=== PATIENT | female | born 1970 | race Caucasian/White ===

== ENCOUNTER → 2017-10-21 14:15 | Outpatient (CLI) | payer MEDICAID, SELFPAY ==
--- NOTE | 2017-10-21 14:16 | US_ITS ---
STUDY: ULTRASOUND OF THE FEMALE PELVIS REASON FOR EXAM: Female, 47 years old. Pelvic pain LMP: Post hysterectomy TECHNIQUE: Transverse and longitudinal imaging of the pelvis was obtained transabdominally and transvaginally using real-time ultrasound. COMPARISON: None. FINDINGS: The uterus is surgically absent. The right ovary is surgically absent. The left ovary is surgically absent. There is no fluid in the cul-de-sac. The bladder volume measures 739 mL. There is an echogenic focus along the posterior wall of the bladder measuring 8 mm in size. US/Pelvic (Non ) IMPRESSION: The uterus and ovaries are surgically absent. There are no abnormal masses in the pelvis. There is no free fluid in the pelvis. There is a small echogenic focus along the posterior wall of the bladder measuring 8 mm, probable stone in the bladder lumen or in the left UVJ. Electronically Signed: Radha Bardales MD at 20:14 EST Tel Direct: [phone], Service support ,
--- NOTE | 2017-10-21 14:16 | US_ITS ---
STUDY: ULTRASOUND OF THE FEMALE PELVIS REASON FOR EXAM: Female, 47 years old. Pelvic pain LMP: Post hysterectomy TECHNIQUE: Transverse and longitudinal imaging of the pelvis was obtained transabdominally and transvaginally using real-time ultrasound. COMPARISON: None. FINDINGS: The uterus is surgically absent. The right ovary is surgically absent. The left ovary is surgically absent. There is no fluid in the cul-de-sac. The bladder volume measures 739 mL. There is an echogenic focus along the posterior wall of the bladder measuring 8 mm in size. US/Transvaginal Non- IMPRESSION: The uterus and ovaries are surgically absent. There are no abnormal masses in the pelvis. There is no free fluid in the pelvis. There is a small echogenic focus along the posterior wall of the bladder measuring 8 mm, probable stone in the bladder lumen or in the left UVJ. Electronically Signed: Radha Bardales MD at 20:14 EST Tel Direct: [phone], Service support ,
== END ==
PROVIDERS: Family Provider Family Medicine; PCP Family Medicine; Visit Provider Nurse Practitioner Women's Health
DX: R10.2 Pelvic and perineal pain (principal); Z90.710 Acquired absence of both cervix and uterus
CPT/HCPCS: 76830; 76856

== ENCOUNTER → 2017-10-23 11:49 | Outpatient (CLI) | payer MEDICAID, SELFPAY ==
[2017-10-23 11:52] LABS: Bacteria 0 SEEN /hpf (None Seen); Mucous, Urine 0 SEEN /hpf (<or=2+); Red Blood Cells-Urine 0 SEEN /hpf (0-5); White Blood Cells 0 SEEN /hpf (0-5)
[2017-10-23 15:46] LABS: Absolute Lymphocyte Count 4.31 X10^3/ul (0.83-4.51); Absolute Neutrophil Count 4.8 X10^3/uL (2.0-7.7); Basophil# 0.04 X10^3/uL; Basophil% 0.4 % (0-1); Eosinophil# 0.12 X10^3/uL; Eosinophils% 1.2 % (0-5); Hematocrit 42.8 % (37-47); Hemoglobin 13.6 g/dl (12.0-15.0); Lymphocyte # 4.31 X10^3/ul (4.0); Lymphocyte % 43.3 % (19-41); Mean Corp Hgb Conc 31.8 g/gl (32-36); Mean Corpuscular Hgb 30.8 pg (27.0-32.0); Mean Corpuscular Volume 96.8 fL (81-99); Mean Platelet Vol. 10.7 fl (6.2-12.0); Monocyte# 0.71 X10^3/uL; Monocyte% 7.1 % (0-10); Neutrophil # 4.75 X10^3/uL (2.7-7.7); Neutrophil % 47.8 % (47-70); Platelet Count 286 K/mm3 (150-450); RBC Distribution Width CV 15.3 % (11.6-14.6); RBC Distribution Width SD 53.2 fl (35.1-43.9); Red Blood Count 4.42 M/mm3 (4.2-5.4)
[2017-10-23 15:47] LABS: POSITIVE COUNT NO; POSITIVE DIFFERENTIAL NO; POSITIVE MORPHOLOGY NO
[2017-10-23 16:21] LABS: Vitamin B12 955 pg/mL (211-911); Vitamin D,25 Hydroxy 10.8 ng/mL (19.95-100.01)
[2017-10-23 16:35] LABS: ALB/GLOB Ratio 1.1 RATIO (0.9-2.4); AST(SGOT) 17 U/L (15-37); Alanine Aminotransfer ALT/SGPT 32 U/L (13-56); Albumin, Serum 3.9 g/dL (3.2-5.0); Alkaline Phosphatase 95 U/L (45-117); Anion Gap 7 (5-15); BUN 15 mg/dL (7-18); BUN/Creat Ratio 21.4 RATIO (10-20); Calcium,Total 9.2 mg/dL (8.5-10.1); Chloride 104 mmol/L (98-107); EST Glomerular Filtration Rate 96 mL/min (>60); Est Glom Filt Rate - Afr Amer 116 mL/min (>60); Globulin 3.7 g/dL (2.2-4.2); Glucose 83 mg/dL (74-106); Potassium 3.8 mmol/L (3.5-5.1); Protein, Total 7.6 g/dL (6.4-8.2); Sodium Level 139 mmol/L (136-145); Thyroid Stim Hormone (TSH) 1.18 uIU/mL (0.358-3.74)
[2017-10-23 18:39] LABS: Color, Urine Yellow (Yellow); Glucose, Dipstick Normal (Normal); Ketone-Dipstick Negative (Negative); Leukocyte Esterase-Dipstick Negative /ul (Negative); Nitrite-Dipstick Negative (Negative); Occult Blood-Urine Negative /ul (Negative); Protein-Dipstick Negative (Negative); Urine Bilirubin Dipstick Negative (Negative); Urine Clarity Clear (Clear); Urine Urobilinogen Normal (Normal)
[2017-10-23 18:48] LABS: Squamous Epithelial Cells - UA 0-5 SEEN /hpf (5-10)
== END ==
PROVIDERS: Family Provider Family Medicine; PCP Family Medicine; Visit Provider Family Medicine
DX: R53.83 Other fatigue (principal); R31.29 Other microscopic hematuria
CPT/HCPCS: 36415; 80053; 81001; 82306; 82607; 84443; 85025; 87086; 87088

== ENCOUNTER → 2018-02-18 15:22 | Outpatient (CLI) | payer MEDICAID, SELFPAY ==
[2018-02-18 18:16] LABS: ALB/GLOB Ratio 1.1 RATIO (0.9-2.4); AST(SGOT) 15 U/L (15-37); Alanine Aminotransfer ALT/SGPT 32 U/L (13-56); Albumin, Serum 3.7 g/dL (3.2-5.0); Alkaline Phosphatase 105 U/L (45-117); Anion Gap 10 (5-15); BUN 11 mg/dL (7-18); Calcium,Total 8.6 mg/dL (8.5-10.1); Chloride 106 mmol/L (98-107); Creatinine, Serum 0.78 mg/dL (0.55-1.02); EST Glomerular Filtration Rate 84 mL/min (>60); Est Glom Filt Rate - Afr Amer 101 mL/min (>60); Globulin 3.4 g/dL (2.2-4.2); Glucose 83 mg/dL (74-106); Potassium 3.7 mmol/L (3.5-5.1); Protein, Total 7.1 g/dL (6.4-8.2); Sodium Level 144 mmol/L (136-145); Thyroid Stim Hormone (TSH) 0.99 uIU/mL (0.358-3.74)
[2018-02-19 08:41] LABS: Vitamin D,25 Hydroxy 35.3 ng/mL (29.95-100.01)
== END ==
PROVIDERS: Family Provider Family Medicine; PCP Family Medicine; Visit Provider Family Medicine
DX: I42.9 Cardiomyopathy, unspecified (principal); I10 Essential (primary) hypertension; E55.9 Vitamin D deficiency, unspecified; Z51.81 Encounter for therapeutic drug level monitoring
CPT/HCPCS: 36415; 80053; 82306; 84443

== ENCOUNTER → 2018-11-18 12:05 | Outpatient (CLI) | payer MEDICAID, SELFPAY ==
[2017-10-22 09:58] VITALS: BMI 34.7
--- NOTE | 2018-11-18 12:12 | RAD_ITS ---
We are attempting to reach Catarino Flood DO to discuss findings. An addendum with communication details will be sent when the communication is complete. STUDY: X-RAY - CERVICAL SPINE REASON FOR EXAM: Female, 48 years old. Left shoulder pain radiating into left side of neck. No known injury. TECHNIQUE: 5 view(s) of the cervical spine were obtained. COMPARISON: None FINDINGS: There are degenerative changes of the anterior atlantoaxial articulation. Normal odontoid process. There is straightening of the normal cervical lordosis. There is multi-level endplate spondylosis. There is multi-level degenerative disc disease with multilevel disc space narrowing. There are degenerative arthroses of the mid cervical facet articulations. There is moderate osseous narrowing of the bilateral C3-4 intervertebral neural foramina, and mild osseous narrowing at C6-7. There are atherosclerotic vascular calcifications of the carotid arteries. There is no demonstrated osseous destructive process or acute fracture of the cervical spine. RAD/Cerv Spine 4 or 5 Views IMPRESSION: 1. Multilevel degenerative changes of the right cervical spine as described. 2. Atherosclerotic calcific plaquing of the bilateral carotid arteries incidentally noted, greater on the right. Pending Final Proof Editing
== END ==
PROVIDERS: Family Provider Family Medicine; PCP Family Medicine; Referring Provider Family Medicine; Visit Provider Family Medicine
DX: M54.12 Radiculopathy, cervical region (principal)
CPT/HCPCS: 72050

== ENCOUNTER → 2018-11-20 08:33 | Outpatient (CLI) | payer MEDICAID, SELFPAY ==
[2017-10-22 09:58] VITALS: BMI 34.7
[2018-11-20 12:47] LABS: Cholesterol 281 mg/dL (200); High Density Lipoprotein 37 mg/dL; Triglycerides 191 mg/dL; Very Low Density Lipoprotein 38 mg/dL (5-40)
== END ==
PROVIDERS: Family Provider Family Medicine; PCP Family Medicine; Visit Provider Family Medicine
DX: I65.29 Occlusion and stenosis of unspecified carotid artery (principal); E78.5 Hyperlipidemia, unspecified
CPT/HCPCS: 36415; 80061

== ENCOUNTER → 2018-11-21 10:01 | Outpatient (CLI) | payer MEDICAID, SELFPAY ==
[2017-10-22 09:58] VITALS: BMI 34.7
--- NOTE | 2018-11-21 10:04 | CDU_ITS ---
Reason For Study: Carotid atherosclerosis Rt. Velocities/BP Lt. Velocities/BP Prox CCA 66.3/16.4 cm/sec. Prox CCA 85.6/24.6 cm/sec. Mid CCA 64.5/19.9 cm/sec. Mid CCA 66.8/20.5 cm/sec. Dist CCA 68.0/19.9 cm/sec. Dist CCA 63.3/22.3 cm/sec. Prox ICA 83.3/22.3 cm/sec. Prox ICA 69.2/28.7 cm/sec. Mid ICA 67.4/21.7 cm/sec. Mid ICA 80.6/31.3 cm/sec. Dist ICA 89.1/39.9 cm/sec. Dist ICA 82.0/34.5 cm/sec. Rt. ICA/CCA = 1.4. Lt. ICA/CCA = 1.2. Prox ECA 87.1/21.4 cm/sec. Prox ECA 91.5/22.3 cm/sec. Rt. Vert. 44.0/14.1 cm/sec. Lt. Vert. 56.9/17.6 cm/sec. Right Extracranial There is homogeneous, smooth atherosclerotic plaque noted in the right common carotid artery. There is heterogeneous, irregular atherosclerotic plaque noted in the right internal carotid artery. There is no significant atherosclerotic plaque noted in the right external carotid artery. Antegrade flow is noted in the right vertebral artery. Left Extracranial There is intimal thickening but no significant atherosclerotic plaque noted in the left common carotid artery. There is heterogeneous, irregular atherosclerotic plaque noted in the left internal carotid artery. There is intimal thickening but no significant atherosclerotic plaque noted in the left external carotid artery. Antegrade flow is noted in the left vertebral artery. Procedure Carotid Duplex 29039. Exam performed in department. Interpretation Summary Mild (<50%) stenosis right extracranial internal carotid. Mild (<50%) stenosis left extracranial internal carotid. Flow within the vertebral arteries is antegrade bilaterally. Ordering Physician: Catarino Flood Referring Physician: Catarino Flood Performed By: Myesha Velasquez RVT
== END ==
PROVIDERS: Family Provider Family Medicine; PCP Family Medicine; Referring Provider Family Medicine; Visit Provider Family Medicine
DX: I65.23 Occlusion and stenosis of bilateral carotid arteries (principal)
CPT/HCPCS: 93880

== ENCOUNTER 2018-11-24 10:16 | Emergency (ER) | payer MEDICAID, SELFPAY ==
[2018-11-24 10:20] VITALS: BP 166/115; PULSE 97; RESP 16; TEMP 36.5; O2SAT 99; BMI 32.5
--- NOTE | 2018-11-24 10:36 | NURSING ---
NO OLD EKGS
--- NOTE | 2018-11-24 11:10 | ED.VIS.GEN ---
History of Present Illness Chief Complaint: Chest Pain Informant: Patient Onset: Today Context: Sudden Onset Timing: Intermittent Quality: Sharp chest pain Location: Left side Current Severity: Mild Maximum Severity: Moderate Worsened by: Nothing according the patient Relieved by: Nothing Associated Symptoms: Subjective fever with sweats Narrative: Patient is a middle-aged woman who is a smoker presents with left-sided chest pain that she localized over the fourth fifth intercostal space. Recent diagnosis of bronchitis/sinusitis. She has had symptoms for approximately 3 weeks. She denies leg pain, swelling discoloration. She has no risk factors for PE or DVT. She is on no hormonal therapy. She does complain of nasal congestion. She reports cough. She denies hematemesis, melena medication. She does have history of reflux. She has no history of hypertension. Patient states she is on a beta-mert for her heart muscle and is on an anticholesterol medication. She states her blood pressure was higher than normal at 152 systolic. Past Medical History - Allergies and Home Meds Allergies/Adverse Reactions: Allergies No Known Allergies Allergy (Unverified 09/30/17 15:08) Primary Care Physician: Catarino Flood DO [Primary Care Provider] - Prior records reviewed: Yes Past Medical History: - Smoking Status: Current every day smoker Alcohol: Rare Drugs: None Review of Systems General: Denies: Chills, Fever, Sweats Eyes: Denies: Visual changes - bilaterally, Blurred vision - left, Diplopia ENT: Denies: Bilateral ear pain, Rhinorrhea, Sore throat Cardiovascular: Reports: Chest pain. Denies: Palpitations Respiratory: Denies: Dyspnea, Cough, Dyspnea on exertion Gastrointestinal: Denies: Abdominal pain, Nausea, Vomiting, Diarrhea, Melena, Hematochezia Genitourinary: Denies: Dysuria, Hematuria, Frequency Musculoskeletal: Denies: Back pain, Extremity Pain Skin: Denies: Rash, Wounds Neurological: Denies: Headache, Weakness, Numbness Hematologic: Denies: Easy bruising, Easy bleeding Allergy: Denies: Uticaria, Swelling of the mouth, Swelling of the tongue Physical Exam Vital Signs/Narrative: Vital Signs Temp Pulse Resp BP Pulse Ox 11/24/18 10:20 97.7 F L 97 16 166/115 H 99 General: Well nourished, Well developed, No Acute Distress Head: Normocephalic, Atraumatic Eyes: Perrl, EOMI ENT: Moist mucous membranes, No rhinorrhea Neck: Supple, Nontender, No lymphadenopathy, No JVD Cardiovascular: Regular rate, Regular rhythm, No murmurs Respiratory: No distress, CTA bilaterally, Chest tenderness - Fourth fifth left intercostal space Abdomen: Soft, Nontender, Nondistended, Normal bowel sounds Back: Nontender, Normal Inspection Extremities: Nontender, No edema, - - There is no asymmetry, swelling, discoloration, leg vein distention, palpable cords or tenderness along the distribution of the deep venous system. Skin: Normal color, No rash Neurological: Alert, Oriented x3, Cranial nerves II-XII grossly intact, Normal Strength, Normal Sensation Psychological: Normal affect, Normal Mood Diagnostic/Tx/Re-eval - Medical Decision Making Patient's history and physical consistent with costochondritis. Laboratory testing, EKG and radiologic imaging is not indicated. Patient is PERC negative. ED Disposition - Plan for ED Patient: Disposition: Home or Assisted Living Diagnosis: Costochondritis, acute Instructions: ED Chest Pain Costochondritis Prescriptions: Naproxen [Naprosyn] 500 mg PO BID #14 tablet Referrals: Catarino Flood DO [Primary Care Provider] - 1 Week if not improving Additional Instructions: Your prescription was electronically transmitted to your designated pharmacy.
[2018-11-24 11:36] VITALS: BP 136/88; PULSE 80; RESP 14; O2SAT 95
[2018-11-24] MEDS: Naproxen 250 MG Tablet 500 MG PO (11:37)
--- NOTE | 2018-11-24 12:00 | EKG12_ITS ---
Test Reason : CP Blood Pressure : / mmHG Vent. Rate : 081 BPM Atrial Rate : 081 BPM P-R Int : 156 ms QRS Dur : 088 ms QT Int : 406 ms P-R-T Axes : 055 047 055 degrees QTc Int : 471 ms Normal sinus rhythm Nonspecific ST and T wave abnormality Abnormal ECG Confirmed by TRAVIS MULTANI, SANTOS ([id number]), department editor EREN CARRIZALES ([id number]) on 11/25/2018 2:18:14 PM Referred By: YEHUDA Confirmed By:SANTOS ROBLES MD
== END 2018-11-24 11:41 | disposition home or self-care (01) ==
PROVIDERS: Emergency Provider Emergency Medicine; Family Provider Family Medicine; PCP Family Medicine
DX: M94.0 Chondrocostal junction syndrome [Tietze] (principal); K21.9 Gastro-esophageal reflux disease without esophagitis; F17.200 Nicotine dependence, unspecified, uncomplicated
CPT/HCPCS: 93005; 99284; A4216

== ENCOUNTER → 2019-03-18 06:48 | Outpatient (CLI) | payer MEDICAID, SELFPAY ==
--- NOTE | 2019-03-18 10:21 | NEURO ---
NCS and/or EMG Patient Report Ordering Doctor: Catarino Flood DATE OF SERVICE: 03/18/19 This is a left upper extremity EMG and nerve conduction study performed on this 48-year-old female with [id number] in her left arm and hand affecting all fingers equally. The symptoms do awaken her from sleep at night and have been constant for approximately 1 month. She says based on plain x-rays of her neck she has been diagnosed with arthritis and possible disc herniation. She has not had other neuro imaging. Left upper extremity sensory and motor nerve conduction studies performed demonstrating prolongation of the median motor and sensory distal latency with preservation of amplitude and conduction velocity. The ulnar motor and sensory and radial sensory responses are normal. There is mild prolongation of the left median F wave compared to the ulnar F-wave. Left upper extremity needle electromyography is performed. Muscles evaluate included the first interosseous, abductor pollicis brevis, brachioradialis, biceps, triceps and deltoid muscles. There is slight increase in insertional activity in the abductor pollicis brevis muscle. All other muscles tested demonstrated normal insertional activity with absence of pathologic spontaneous activity and motor unit potential recruitment pattern and amplitude was otherwise normal. 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
== END ==
PROVIDERS: Family Provider Family Medicine; PCP Family Medicine; Referring Provider Family Medicine; Visit Provider Family Medicine
DX: G56.02 Carpal tunnel syndrome, left upper limb (principal)
CPT/HCPCS: 95886; 95910

== ENCOUNTER → 2019-04-16 08:23 | Outpatient (CLI) | payer MEDICAID, SELFPAY ==
[2019-04-16 08:17] VITALS: BMI 32.5
--- NOTE | 2019-04-16 08:24 | RAD_ITS ---
STUDY: X-RAY - LEFT HAND REASON FOR EXAM: Hand and wrist pain from repetitive movement. TECHNIQUE: 3 view(s) of the hand. COMPARISON: None. FINDINGS: Normal radiocarpal articulation. Normal distal radioulnar joint. Normal visualized carpal bones. Normal carpal articulations Normal carpometacarpal articulation of the thumb. Normal second through fifth carpometacarpal joints. Normal metacarpi. Normal metacarpophalangeal joint of the thumb. Normal interphalangeal joint of the thumb. Normal proximal and distal phalanges of the thumb. Normal metacarpophalangeal joints of the second through fifth fingers. Normal proximal and distal interphalangeal joints of the second through fifth fingers. Normal phalanges of the second through fifth fingers. The soft tissue structures are unremarkable. RAD/Hand Min 3 Views IMPRESSION: Normal x-ray examination of the left hand. Electronically Signed: Myles Bishop MD at 10:20 EDT Tel , Service support ,
== END ==
PROVIDERS: Family Provider Family Medicine; PCP Family Medicine; Referring Provider Orthopaedic Surgery; Visit Provider Orthopaedic Surgery
DX: G56.12 Other lesions of median nerve, left upper limb (principal)
CPT/HCPCS: 73130

== ENCOUNTER → 2019-10-07 16:09 | Outpatient (CLI) | payer MEDICAID, SELFPAY ==
[2019-10-07 14:34] VITALS: BMI 32.5
== END ==
LOC: LABSPEC 16:10
PROVIDERS: PCP Family Medicine; Referring Provider Nurse Practitioner Women's Health; Visit Provider Nurse Practitioner Women's Health
DX: N89.8 Other specified noninflammatory disorders of vagina (principal)
CPT/HCPCS: 87070; 87106; 87205

== ENCOUNTER → 2020-05-17 07:14 | Outpatient (CLI) | payer MEDICAID, SELFPAY ==
[2020-05-02 13:03] VITALS: BMI 32.8
[2020-05-10 11:01] VITALS: BMI 33.1
--- NOTE | 2020-05-17 07:15 | ECHOD_ITS ---
Reason For Study: CHEST PAIN Procedure This was a 2D Doppler, Color Flow transthoracic echocardiogram. Exam performed in department. Left Ventricle Normal LV size. Left ventricular systolic function is normal. The estimated ejection fraction is 65 %. Diastolic function is indeterminate. No regional wall motion abnormalities noted. Right Ventricle Normal RV size. Normal systolic function. Atria Normal left atrium. Normal right atrium. No doppler evidence for ASD. Mitral Valve There is no mitral annular calcification. Mild diffuse mitral valve thickening. Trivial mitral valve insufficiency. Tricuspid Valve Normal tricuspid valve. Trivial tricuspid valve insufficiency. Right ventricular systolic pressure estimated to be 34 mmHg. Aortic Valve Trisinus/trileaflet aortic valve. Normal aortic valve. Pulmonic Valve Normal pulmonic valve. Trivial pulmonic valve insufficiency. Great Vessels Normal aortic root. Pericardium/Pleural No pericardial effusion. MMode/2D Measurements & Calculations LVIDd: 4.7 cm IVSd: 0.85 cm Ao root diam: 3.2 cm LVIDs: 2.5 cm LVPWd: 0.85 cm RVDd: 3.4 cm FS: 46.3 % LAV(MOD-bp): 32.2 ml LA A4 area: 11.9 cm2 LA dimension(2D): 3.0 cm LAV(MOD-bp) Indexed: 17.1 ml/m2 LAV(MOD-sp2): 35.6 ml LAV(MOD-sp4): 27.7 ml RA A4 area: 9.8 cm2 Time Measurements MV dec time: 0.27 sec Doppler Measurements & Calculations MV E max alden: 75.4 cm/sec Lat Peak E' Alden: 5.2 cm/sec Med Peak E' Alden: 6.6 cm/sec MV A max alden: 79.3 cm/sec E/E' lat: 14.4 E/E' med: 11.5 MV E/A: 0.95 Ao V2 max: 142.2 cm/sec LV V1 max: 101.9 cm/sec PA V2 max: 91.8 cm/sec Ao max P.1 mmHg LV V1 max P.2 mmHg TR max alden: 277.2 cm/sec TR max P.7 mmHg Interpretation Summary Left ventricular systolic function is normal. The estimated ejection fraction is 65 %. Mild diffuse mitral valve thickening. Trivial mitral valve insufficiency. Trivial tricuspid valve insufficiency. Trivial pulmonic valve insufficiency. Right ventricular systolic pressure estimated to be 34 mmHg. Diastolic function is indeterminate. Ordering Physician: Nicolas Ybarra Referring Physician: BETH BARRIOS Performed By: Shanti Saunders, RDCS, RVT
--- NOTE | 2020-05-17 07:30 | RAD_ITS ---
STUDY: X-RAY CHEST REASON FOR EXAM: Female, 49 years old. BRITO, some CP TECHNIQUE: PA and lateral views of the chest. COMPARISON: None. FINDINGS: Hyperinflation. Scattered calcified granulomas. There is no demonstrated pleural abnormality. Normal size heart. Normal mediastinum and alyssa. Normal visualized pulmonary arteries. Normal visualized aortic arch and descending thoracic aorta. There is demineralization of the osseous structures. Normal visualized ribs, clavicles, and shoulders. Surgical clips are seen in the right upper quadrant most likely secondary to prior cholecystectomy. RAD/Chest PA and Lateral IMPRESSION: Hyperinflation. No acute abnormality is seen. Electronically Signed: Johnathon Gil, at 8:13 EDT , Service support ,
--- NOTE | 2020-05-17 10:08 | STRESSREP ---
Stress Test Report Date: 05-17-2020 Procedure: Exercise tolerance test/imaging study Indications: Pain; dyspnea on exertion; palpitations Consent: Per the patient Procedure: The patient exercised on a Dean protocol for 7 minutes completing Stage II and 1 minute of Stage III achieving a peak heart rate of 131 bpm (76 % predicted maximal heart rate) with a peak blood pressure 152/78 mmHg and a peak MET capacity of 8 METs. The baseline ECG demonstrated sinus bradycardia. The peak exercise ECG demonstrated somatic/motion artifact with no obvious ECG changes. There were no cardiac dysrhythmias pretest, during exercise, or recovery. The functional capacity was considered average. There was no complaint of chest discomfort during exercise or recovery. The examination was discontinued secondary to dyspnea. Impression: 1. Technically adequate (percent predicted maximal heart rate greater than 85%) exercise tolerance test 2. Peak exercise ECG with somatic/motion artifact with no obvious ECG changes 3. There were no cardiac dysrhythmias pretest, during exercise, or recovery 4. Nuclear images pending Myocardial perfusion imaging study: Technique: The patient was injected with 11.1 mCi of technetium 99m Cardiolite and subsequently rest SPECT Cardiolite nuclear imaging was obtained in the horizontal long, vertical long, and short axis views. The patient exercised on a Dean protocol for 7 minutes completing Stage II and 1 minute of Stage III achieving a peak heart rate of 131 bpm (76 % predicted maximal heart rate) with a peak blood pressure 152/78 mmHg and a peak MET capacity of 8 METs. The patient was injected with 33.4 mCi of technetium 99m Cardiolite and subsequently stress SPECT Cardiolite nuclear imaging was obtained in the horizontal long, vertical long, and short axis views. A gated Cardiolite study at peak stress was obtained. Interpretation: Rest and stress SPECT Cardiolite nuclear imaging status post realignment, normalization, and attenuation correction, demonstrates the appearance of relative uniform tracer uptake and myocardial perfusion appearing within normal limits. There is end systolic thickening and brightening. The gated Cardiolite study demonstrates myocardial thickening and inward wall motion. The reported LVEF is 74 %. Impression: 1. Rest and stress SPECT Cardiolite nuclear imaging demonstrate relative uniform tracer uptake and myocardial perfusion appearing within normal limits. 2. The gated Cardiolite study reports an LVEF of 74 %. This note was generated with [employer] software. It may contain incorrect words, spelling, and punctuation that were not noted in checking the note before signing.
== END ==
PROVIDERS: PCP Family Medicine; Referring Provider Internal Medicine Cardiovascular Disease; Visit Provider Internal Medicine Cardiovascular Disease
DX: R07.9 Chest pain, unspecified (principal); R06.00 Dyspnea, unspecified; R09.02 Hypoxemia; I49.3 Ventricular premature depolarization; I47.9 Paroxysmal tachycardia, unspecified; I34.1 Nonrheumatic mitral (valve) prolapse; E78.2 Mixed hyperlipidemia; I10 Essential (primary) hypertension; I65.23 Occlusion and stenosis of bilateral carotid arteries
CPT/HCPCS: 71046; 78452; 93017; 93306; A9500; A4216

== ENCOUNTER → 2020-06-09 12:20 | Outpatient (CLI) | payer MEDICAID, SELFPAY ==
[2020-05-10 11:01] VITALS: BMI 33.1
--- NOTE | 2020-06-09 15:59 | PFTCOMP ---
COMPLETE PULMONARY FUNCTION TEST INTERPRETATION Brief HPI: Patient is a 49 year old female, currently under the care of Dr. Kyle, who presents to [facility] for complete pulmonary function tests secondary to diagnosis of dyspnea. Respiratory therapist reports good effort and reproducible results. Interpretation: Forced expiration spirometry shows no large airways obstructive ventilatory defect with an FEV1 of 84% predicted. There is no significant bronchodilator response by strict ATS criteria. Spirograms are of good quality and plateau normally. The respiratory flow volume loop shows a normal pattern. Lung volumes by body plethysmography show an elevated total lung capacity at 6.65 L, 139% predicted. FRC and RV are elevated out of proportion. Lung volume measurements are consistent with hyperinflation and air-trapping. Diffusion capacity by carbon monoxide is decreased at 58% predicted. The airway resistance is elevated. No previous pulmonary function tests were available for review. Impression: Air trapping with hyperinflation and a significant reduction in diffusion capacity. Spirometry is within normal limits.
== END ==
PROVIDERS: PCP Family Medicine; Referring Provider Internal Medicine Critical Care Medicine; Visit Provider Internal Medicine Critical Care Medicine
DX: R06.02 Shortness of breath (principal)
CPT/HCPCS: 94060; 94726; 94729

== ENCOUNTER → 2020-06-13 12:29 | Outpatient (CLI) | payer MEDICAID, SELFPAY ==
[2020-05-10 11:01] VITALS: BMI 33.1
[2020-06-13 12:52] VITALS: PULSE 63; PULSE 64; PULSE 93; PULSE 95; PULSE 96; PULSE 98; O2SAT 96; O2SAT 97; O2SAT 98
--- NOTE | 2020-06-13 12:55 | CPS ---
wears 2 LPM at night per her exercise specialist.
--- NOTE | 2020-06-14 10:41 | PCM.PSN.6M ---
PSN 6 Minute Walk Test - 6 Minute Walk Test 6 Minute Walk Test: 6 Minute Walk Test PSN:6-Minute Walk Test Start: 06/13/20 12:51 Freq: Status: Active Protocol: [id number].[id number] Document 06/13/20 12:52 FR (Rec: 06/13/20 12:56 FR [id number]) 6 Minute Walk Test Date Performed 06/13/20 Time Performed 12:30 Height 5 ft 4 in Weight: 184 lb Weight in Pounds 184.[address]: Nilson Kyle Assistive device used: None Pre-test Oxygen Delivery Method Room Air Pulse Ox (%) 97 Pulse Rate (60-100 beats/min) 63 Dyspnea Iggy Scale (0-10) 0 Exertion Iggy Scale (6-20) 9 1st minute Oxygen Delivery Method Room Air Pulse Ox (%) 96 Pulse Rate (60-100 beats/min) 64 2nd minute Oxygen Delivery Method Room Air Pulse Ox (%) 98 Pulse Rate (60-100 beats/min) 98 3rd minute Oxygen Delivery Method Room Air Pulse Ox (%) 97 Pulse Rate (60-100 beats/min) 98 4th minute Oxygen Delivery Method Room Air Pulse Ox (%) 96 Pulse Rate (60-100 beats/min) 95 5th minute Oxygen Delivery Method Room Air Pulse Ox (%) 96 Pulse Rate (60-100 beats/min) 93 6th minute Oxygen Delivery Method Room Air Pulse Ox (%) 96 Pulse Rate (60-100 beats/min) 96 Dyspnea Iggy Scale (0-10) 3 Exertion Iggy Scale (6-20) 10 Post-test Oxygen Delivery Method Room Air Pulse Ox (%) 96 Pulse Rate (60-100 beats/min) 63 Full Laps Walked 20 Partial Lap, Number of Tiles Walked 12 Total Distance Walked (ft) 1192 06/13/20 12:55 Cardiopulmonary Services by Deanna Snow wears 2 LPM at night per her automatic vulcanizing lead operator. Initialized on 06/13/20 12:55 - END OF NOTE - Interpretation Interpretation: The patient ambulated 1192 feet over the course of 6 minutes beginning on room air without assistive devices or breaks. Pretesting oxygen saturation was noted to be 97% on room air. With ambulation, the nirav oxygen saturation was 96%. There was no significant exertional oxygen desaturation. - Recommendations Recommendations: There is no indication for the use of supplemental oxygen at this time.
== END ==
PROVIDERS: PCP Family Medicine; Referring Provider Internal Medicine Critical Care Medicine; Visit Provider Internal Medicine Critical Care Medicine
DX: R06.02 Shortness of breath (principal)
CPT/HCPCS: 94618

== ENCOUNTER → 2020-08-26 09:08 | Outpatient (CLI) | payer MEDICAID, SELFPAY ==
[2020-07-28 14:02] VITALS: BMI 31.7
--- NOTE | 2020-08-26 09:12 | RAD_ITS ---
STUDY: X-RAY - ABDOMEN/PELVIS REASON FOR EXAM: Female, 49 years old. EPIGASTRIC LUMP, FULL FEELING, 6# WEIGHT LOSS IN 2 WKS TECHNIQUE: Frontal view of the abdomen COMPARISON: None. FINDINGS: Normal visualized lung bases. There is cholecystectomy. There is an unremarkable bowel gas pattern. There is no demonstrated free abdominal air. The visualized liver, spleen and kidneys are grossly normal in size and morphology. Normal soft tissue structures. Normal visualized osseous structures. RAD/Abdomen Single View IMPRESSION: Normal x-ray examination of the abdomen and pelvis. Electronically Signed: Mehrdad Scanlon, at 17:54 EST Tel , Service support ,
--- NOTE | 2020-08-26 09:12 | RAD_ITS ---
EXAMINATION: UPPER GI SERIES INDICATION: Female, 49 years weight loss. Epigastric fullness. FLUOROSCOPY TIME (if supplied): (0:36) minutes/seconds. 15 images were obtained. TECHNIQUE: Radiographic and fluoroscopic images of the distal esophagus, stomach, and proximal small intestine were obtained following the oral ingestion of barium. COMPARISON: None. FINDINGS: There is no evidence for organomegaly, abnormal calcifications, or abnormal bowel gas pattern. The psoas margins and flank stripes are normal. The visualized osseous structures are normal. The mucosa of the esophagus, stomach and duodenum is normal in appearance without evidence for stricture, ulceration, mass or diverticulum. There is no evidence for hiatal hernia or gastroesophageal reflux. RAD/Upper GI Dual Contrast IMPRESSION: 1. Normal upper gastrointestinal study. Electronically Signed: Johnathon Gil, at 10:49 EST , Service support ,
== END ==
PROVIDERS: PCP Family Medicine; Referring Provider Family Medicine; Visit Provider Family Medicine
DX: R07.9 Chest pain, unspecified (principal); R11.10 Vomiting, unspecified; R63.0 Anorexia; R63.4 Abnormal weight loss
CPT/HCPCS: 74018; 74246

== ENCOUNTER 2020-09-05 08:10 | Day surgery (SDC) | payer MEDICAID, SELFPAY ==
[2020-08-31 13:30] VITALS: BMI 31.2
[2020-09-05] VITALS (7 sets, daily range): BP systolic 129–151; BP diastolic 71–90; PULSE 50–62; RESP 14–18; TEMP 36.2–37.3; O2SAT 98–100; BMI 32.3
--- NOTE | 2020-09-05 | GASB_PTH ---
PATIENT: KAMLESH DIAZ LOC: EN U#:[id number] AGE/SX: 49/F ROOM: RE09/05/[address]: Dr. Martha Walker MD : 1970 BED: DIS: 09/05/2020 SPEC #: [id number] RECD: 09/05/20 10:24 STATUS: MIGUE KHANH #: [id number] SHAUN: 09/05/20 00:[address]: Martha Walker DEPT: SURGICAL PATHOLOGY RECD BY: Cori Decker ENTERED: 09/05/20 11:18 SP TYPE: Gastric Bx LEÓN DR: Dr. Catarino Flood DO Tissues: A - Gastric mucous membrane B - Gastric mucous membrane Procedures: Special Stain Group II Surgery Specimen Level IV Alcian Blue/PAS (control) HEADER OPERATION[place] [place] DIAGNOSIS: GERD, bilateral lower quadrant abdominal pain, mostly right TISSUE SUBMITTED: A - Antrum biopsy for histo and H. pylori, B - GE junction biopsy MICROSCOPIC DIAGNOSIS A. Gastric antrum, biopsy: Chronic gastritis. See comment. B. Gastroesophageal junction, biopsy: Mild chronic inflammation. Focal changes of reflux. No evidence of goblet cell metaplasia. See comment. AM:xiomara 09/06/20 COMMENT A. The results of immunohistochemistry for Helicobacter pylori will be reported separately ([id number]). B. Alcian blue/PAS stain with matched control supports the above diagnosis. MICROSCOPIC DESCRIPTION Slides are reviewed. GROSS DESCRIPTION A - Received in fixative is one container labeled with the patient's name and designated antrum biopsy. The specimen consists of one irregular fragment of light langley soft tissue that measures 0.5 x 0.2 x 0.1 cm. The specimen is totally submitted in one cassette. B - Received in fixative is one container labeled with the patient's name and designated GE junction. The specimen consists of one irregular fragment of light langley soft tissue that measures 0.5 x 0.3 x 0.1 cm. The specimen is totally submitted in one cassette. / AM:xiomara 09/05/20 TC:3 CPT: 53048 x2, 09095
[2020-09-05] MEDS: Lactated Ringers 1,000 ML 75 ML IV (08:56)
--- NOTE | 2020-09-05 09:14 | H&P.OPEN ---
History of Present Illness Date of Admission: 09/05/20 The patient is a 49 year old F presents for EGD and colonoscopy due to reflux as well as bilateral lower quadrant pain more so on the right. Patient was initially seen in the office and stated she has been having some nausea and vomiting for about 2 months can happen anytime or in a.m. before she eats. She states she has not had the vomiting a couple days but still has the nausea. Patient has been having right lower quadrant abdominal pain which comes and goes it can occur as she is sitting or with moving and with rest. Patient does not notice a bulge at this location. Patient states she has had reflux symptoms about once a week she has been on omeprazole 40 mg p.o. daily for about 4 years her previous symptoms were esophageal burning as well as epigastric pain. Patient states she has bowel moods daily denies any blood. Patient has never had a colonoscopy or EGD before. Patient denies any family history of colon cancer. Currently patient states she still has right lower quadrant pain denies any reflux symptoms. Past Medical/Surgical History - Planned Operation Planned Operative Procedure/s: COLONOSCOPY/EGD Date of Operative Procedure: 09/05/20 Permit Signed: Yes S.O.S: No Is This Patient Having a Total Joint: No - Previous Hospitalizations/Surgeries HX Hospitalizations: No HX of Surgeries: GALLBLADDER. MELANOMA EXCISION OF FOREHEAD. HYSTERECTOMY Any Problems With Anesthesia: No You/Your Family Experience Fever (Hyperthermia) With Anes: No Cholinesterase deficiency: No - Cardiovascular Hx Chest Pain within Last 2 months: No Hx of Irregular Heartbeat and/or Afib: No - TACHYCARDIA, PT OF [facility], LAST VISIT 05/02/20 Hx Heart Attack: No Hx Congestive Heart Failure: No Hx Rheumatic Fever: No Hx Hypertension: Yes - ON MEDS, CONTROLLED Hx Internal Defibrillator: No Hx Pacemaker: No Hx Cardiac Catheterization: No Hx Cardiac Surgery/Stents/Etc.: No Hx Stress Test: Yes - [facility] 05/17/20, ECHO [facility] 05/17/20 HX Edema: Yes Hx Pain in Legs when Walking/Leg Cramps: No - Respiratory Chronic Cough: No HX of Shortness of Breath: Yes Hoarseness: No Hx Chronic Obstructive Pulmonary Disease (COPD): No Hx Asthma: No Hx Emphysema: No Hx Sleep Apnea: No Hx Oxygen Use at Home: Yes - WEARS O2 AT 2L NC AT BEDTIME, P.O. DROPS TO 83% ON RA WHILE SLEEPING Hx Respiratory Tract Infection/Cold (presently): No Do You Snore Loudly (louder than talking or can be heard): No Do You Often Feel Tired/ Fatigued/ Sleepy Dring Daytime?: No Has Anyone Observed You Stop Breathing During Sleep?: No Result (for STOP score): Negative Hx Smoking: Yes Smoking Status: Current every day smoker - Gastrointestinal Hx Gastroesophageal Reflux: Yes Controlled With Meds: Yes - OMEPRAZOLE Hx Gastrointestinal Disorders: No Hx Gastrointestinal Bleed: No Hx Ulcer: No Hx Hiatal Hernia: No Difficulty Chewing/Swallowing: No Recent Onset of Swallowing Problems: No Special diet followed at home: No Hx Unplanned Weight Loss of 20#: No HX Unplanned Weight Gain of 20#: No - Neurological Hx Seizures: No HX Syncope/Blackout Spells/Unconsciousness: No Hx CVA/Stroke: No Hx Transient Ischemic Attacks (TIA): No Hx Multiple Sclerosis: No Hx Parkinson's Disease: No Hx Head/Neck Injury: No Hx Headaches: Yes Hx Back Injury/Pain: Yes Recent Onset of Speech Difficulty: No Restless Legs: No Does patient have nerve stimulator: No - Blood Disorder Hx Leukemia: No Bleeding Tendencies: No Hx Deep Vein Thrombosis: No Hx High Cholesterol: Yes - ON MED Blood Transmitted Disease: No Hx Hepatitis: No Hx Cirrhosis: No Hx Anemia: No Hx Blood Disorders: No - Reproduction : No Is Patient Lactating: No Hx Hysterectomy: No Hx Tubal Ligation: No Are You Post Menopause: Yes - Genitourinary Hx Renal Disease: Yes - KIDNEY STONES Hx Dialysis: No - Musculoskeletal Hx Arthritis: Yes Hx Rheumatoid Arthritis: No Hx Gout: No Recent Onset of an Orthopedic Problem: No - Endocrine Hx Diabetes: No Thyroid Disease: No Hx Steroid Therapy: No - Psycho/Social Hx Substance Use: No Hx Alcohol Use: No Hx Anxiety: Yes Hx Depression: Yes Mental Illness: No Hx Dementia: No - Miscellaneous Hx Cancer: No Recent Exposure to Contagious Disease: No Active MRSA: No Hx of C-Diff: No Any Loose Teeth: Yes - FULL SET DENTURES Additional information pertinent to anesthesia:: SMOKES 1/2 PPD FOR 25+ YRS Allergies varenicline [From Chantix] Adverse Reaction (Severe, Verified 08/31/20 13:31) GI upset acetaminophen [From Vicodin] Adverse Reaction (Verified 08/31/20 13:31) Vomiting, upset stomach hydrocodone [From Vicodin] Adverse Reaction (Verified 08/31/20 13:31) Vomiting, upset stomach pregabalin [From Lyrica] Adverse Reaction (Verified 08/31/20 13:31) Shaking, upset stomach - Discharge Is Pt Admitted From a Senior Living, or a [facility]sp: No Who Could Help: After D/C, Where Do you Plan to Go: Return Home - Physical Exam Vitals/I&O's: Vital Signs Temp Pulse Resp BP Pulse Ox 98.6 F 54 L 16 140/90 H 98 09/05/20 08:30 09/05/20 08:30 09/05/20 08:30 09/05/20 08:30 09/05/20 08:30 Oxygen Delivery Method Room Air Weight: 182 lb 5.156 oz Body Mass Index (BMI) 32.3 General: Alert, Oriented x3, Cooperative, No apparent distress HEENT: Atraumatic Lungs: Normal air movement Cardiovascular: Regular rate Abdomen: Soft, Non-Distended, Tender - minimal RLQ, no PS Extremities: No clubbing, No cyanosis, No edema Current Medications Lactated Ringer's () 1,000 mls @ 75 mls/hr IV .[id number] RASTA Last Admin: 09/05/20 08:56 Dose: 75 mls/hr Documented by: Assessment/Plan All Active Problems (Last Reviewed 08/31/20 @ 13:30 by Reyna Briggs) Anxiety and depression (Acute) Back pain (Acute) History of total abdominal hysterectomy (Resolved) History of cholecystectomy (Resolved) History of melanoma excision (Resolved) Premature ventricular contraction (Acute) Paroxysmal tachycardia (Acute) Nonrheumatic mitral (valve) prolapse (Acute) 49-year-old female with GERD, bilateral lower quadrant abdominal pain mostly right Procedure Criteria Procedure Type: Elective COVID Risk Discussion: The surgeon/proceduralist and patient have discussed in detail the risk of exposure to and/or potential harm posed by the COVID-19 virus with having a surgery/procedure at this time versus the risk of delaying the surgery/procedure. It is not possible to know either the risk of delaying the surgery or procedure or chance of getting an infection with perfect accuracy, but a joint decision was made between the patient and the surgeon/proceduralist to proceed at this time with the scheduled surgery/procedure as indicated on the consent form. Surgery Risks - Colonoscopy I discussed with the patient the risks of the procedure: Yes Risks Include but are not Limited To: Risks include but are not limited to: Bleeding, perforation requiring further surgery, inability to complete colonoscopy requiring barium enema.
--- NOTE | 2020-09-05 09:30 | IMM_PTH ---
PATIENT: KAMLESH DIAZ LOC: YUDI U#:[id number] AGE/SX: 49/F ROOM: RE09/05/[address]: Dr. Martha Walker MD : 1970 BED: DIS: 09/05/2020 SPEC #: [id number] RECD: 09/05/20 11:36 STATUS: MIGUE REQ #: [id number] SHAUN: 09/05/20 09:[address]: Martha Walker DEPT: IMMUNOHISTOCHEMISTRY RECD BY: Marcella Palafox ENTERED: 09/05/20 11:38 SP TYPE: IMMUNO OTHR DR: Dr. Catarino Flood, Tissues: A - Stomach, NOS Procedures: H Pylori (initial) PHYSICIAN & INSTITUTION [place] [address] SPECIMEN INFORMATION: Tissue Source: A - Antrum biopsy Clinical Info: GERD, bilateral lower quadrant abdominal pain, mostly right Specimen Number: [id number] CPT code: 51313 METHODOLOGY: Deparaffinized sections of prefer/formalin-fixed tissue or PAP/DQ stained slides are incubated with monoclonal/polyclonal antibodies/oligonucleotide probes. Localization is made via biotin free immunoperoxidase method. Appropriate controls are performed and reacted as expected. Results on target cell population are indicated in the following table: RESULTS: ANTIBODY / CLONE RESULT Block A H Pylori (polyclonal) negative These tests were developed and their performance characteristics determined by [facility]. They may not have been cleared or approved by the U.S. Food and Drug Administration. The FDA has determined that such clearance or approval is not necessary. INTERPRETATION: A. Antrum, biopsy: Negative for Helicobacter pylori organisms. AM:xiomara 09/06/20
--- NOTE | 2020-09-05 10:05 | OP.EGD_ITS ---
Patient Name: Natasha Prado Procedure Date: 09/05/2020 9:19 AM Date of : 1970 Age: 49 Procedure: Upper GI endoscopy Indications: Heartburn Providers: Martha Walker MD Medicines: Monitored Anesthesia Care Patient Profile: This is a 49 year old female. Complications: No immediate complications. Procedure: Pre-Anesthesia Assessment: - Prior to the procedure, a History and Physical was performed, and patient medications and allergies were reviewed. The patient's tolerance of previous anesthesia was also reviewed. The risks and benefits of the procedure and the sedation options and risks were discussed with the patient. All questions were answered, and informed consent was obtained. Prior Anticoagulants: The patient has taken no previous anticoagulant or antiplatelet agents. ASA Grade Assessment: Per anesthesia. After reviewing the risks and benefits, the patient was deemed in satisfactory condition to undergo the procedure. After obtaining informed consent, the endoscope was passed under direct vision. Throughout the procedure, the patient's blood pressure, pulse, and oxygen saturations were monitored continuously. The gastroscope was introduced through the mouth, and advanced to the second part of duodenum. The upper GI endoscopy was accomplished without difficulty. The patient tolerated the procedure well. Scope In: 9:31:16 AM Scope Out: 9:37:00 AM Total Procedure Duration Time 0 hours 5 minutes 44 seconds Findings: The Z-line was irregular and was found 40 cm from the incisors. Biopsies were taken with a cold forceps for histology. Bilious fluid was found in the gastric body. Moderate inflammation characterized by erythema was found in the gastric antrum. Biopsies were taken with a cold forceps for histology. Biopsies were taken with a cold forceps for Helicobacter pylori cultures. The examined duodenum was normal. Impression: - Z-line irregular, 40 cm from the incisors. Biopsied. - Bilious gastric fluid. - Gastritis. Biopsied. - Normal examined duodenum. Recommendation: - Await pathology results. - Use Protonix (pantoprazole) 40 mg PO daily. - Discharge patient to home. - Continue present medications. Procedure Code(s): --- Professional --- 15076, Esophagogastroduodenoscopy, flexible, transoral; with biopsy, single or multiple Diagnosis Code(s): --- Professional --- K22.8, Other specified diseases of esophagus K29.70, Gastritis, unspecified, without bleeding R12, Heartburn CPT copyright 2017 [employer]. All rights reserved. The codes documented in this report are preliminary and upon ironworker review may be revised to meet current compliance requirements. MD Martha Reardon MD 09/05/2020 10:04:24 AM This report has been signed electronically. Number of Addenda: 0 Note Initiated On: 09/05/2020 9:19 AM
--- NOTE | 2020-09-05 10:05 | OP.CCLET_ITS ---
09/05/2020 Catarino Flood [address] [place] [address] Re : Upper GI endoscopy procedure for Natasha Prado Dear Dr. Flood This procedure was performed on Saturday, September 05, 2020. My impressions and recommendations are as follows: Impressions : - Z-line irregular, 40 cm from the incisors. Biopsied. - Bilious gastric fluid. - Gastritis. Biopsied. - Normal examined duodenum. Recommendations : - Await pathology results. - Use Protonix (pantoprazole) 40 mg PO daily. - Discharge patient to home. - Continue present medications. My findings are described in the full procedure note, which is enclosed. If I can be of further assistance, please feel free to contact me at Doctor phone number(s): , Work: . Sincerely, MD Martha Reardon MD 09/05/2020 10:04:24 AM This report has been signed electronically.
--- NOTE | 2020-09-05 10:13 | OP.COLON_ITS ---
Patient Name: Natasha Prado Procedure Date: 09/05/2020 9:37 AM Date of : 1970 Age: 49 Procedure: Colonoscopy Indications: Abdominal pain in the left lower quadrant, Abdominal pain in the right lower quadrant Providers: Martha Walker MD Medicines: Monitored Anesthesia Care Patient Profile: This is a 49 year old female. Last Colonoscopy: none. The patient's first colonoscopy is today. Complications: No immediate complications. Procedure: Pre-Anesthesia Assessment: - Prior to the procedure, a History and Physical was performed, and patient medications and allergies were reviewed. The patient's tolerance of previous anesthesia was also reviewed. The risks and benefits of the procedure and the sedation options and risks were discussed with the patient. All questions were answered, and informed consent was obtained. Prior Anticoagulants: The patient has taken no previous anticoagulant or antiplatelet agents. ASA Grade Assessment: Per anesthesia. After reviewing the risks and benefits, the patient was deemed in satisfactory condition to undergo the procedure. After I obtained informed consent, the scope was passed under direct vision. Throughout the procedure, the patient's blood pressure, pulse, and oxygen saturations were monitored continuously. The colonoscope was introduced through the anus and advanced to the cecum, identified by the appendiceal orifice, ileocecal valve and palpation. The colonoscopy was performed without difficulty. The patient tolerated the procedure well. The quality of the bowel preparation was good. Scope In: 9:39:44 AM Scope Withdrawal Time 0 hours 10 minutes 12 seconds Scope Out: 9:56:58 AM Total Procedure Duration Time 0 hours 17 minutes 14 seconds Findings: The perianal and digital rectal examinations were normal. Many small-mouthed diverticula were found in the entire colon. Terminal ileum appeared normal Impression: - Diverticulosis in the entire examined colon. - No specimens collected. Recommendation: - Discharge patient to home. - High fiber diet. - Continue present medications. - Repeat colonoscopy in 10 years for screening purposes. Procedure Code(s): --- Professional --- 67070, PT, Colonoscopy, flexible; diagnostic, including collection of specimen(s) by brushing or washing, when performed (separate procedure) Diagnosis Code(s): --- Professional --- R10.32, Left lower quadrant pain R10.31, Right lower quadrant pain K57.30, Diverticulosis of large intestine without perforation or abscess without bleeding CPT copyright 2017 [employer]. All rights reserved. The codes documented in this report are preliminary and upon remote coders review may be revised to meet current compliance requirements. MD Martha Reardon MD 09/05/2020 10:13:25 AM This report has been signed electronically. Number of Addenda: 0 Note Initiated On: 09/05/2020 9:37 AM
--- NOTE | 2020-09-05 10:13 | OP.CCLET_ITS ---
09/05/2020 Catarino Flood [address] [place] [address] Re : Colonoscopy procedure for Natasha Prado Dear Dr. Flood This procedure was performed on Saturday, September 05, 2020. My impressions and recommendations are as follows: Impressions : - Diverticulosis in the entire examined colon. - No specimens collected. Recommendations : - Discharge patient to home. - High fiber diet. - Continue present medications. - Repeat colonoscopy in 10 years for screening purposes. My findings are described in the full procedure note, which is enclosed. If I can be of further assistance, please feel free to contact me at Doctor phone number(s): , Work: . Sincerely, MD Martha Reardon MD 09/05/2020 10:13:25 AM This report has been signed electronically.
== END 2020-09-05 10:47 | disposition home or self-care (01) ==
LOC: EN 08:11 → AC 08:11
PROVIDERS: PCP Family Medicine; Referring Provider Family Medicine; Visit Provider Surgery
PROC: 0DJD8ZZ Inspection of Lower Intestinal Tract, Via Natural or Artificial Opening Endoscopic (ICD-10-PCS; CPT 45378; principal; 2020-09-05 09:25)
DX: K57.30 Diverticulosis of large intestine without perforation or abscess without bleeding (principal); K22.8 Other specified diseases of esophagus; K29.70 Gastritis, unspecified, without bleeding; Z20.828 Contact with and (suspected) exposure to other viral communicable diseases; K21.9 Gastro-esophageal reflux disease without esophagitis; I10 Essential (primary) hypertension; Z79.899 Other long term (current) drug therapy; F17.200 Nicotine dependence, unspecified, uncomplicated
CPT/HCPCS: 43239; 45378; 87426; 88305; 88313; 88342; C9803; J7120; J2405

== ENCOUNTER 2020-09-06 21:16 | Emergency (ER) | payer MEDICAID, SELFPAY ==
[2020-09-05 08:30] VITALS: BMI 32.3
[2020-09-06 21:16] VITALS: BP 158/83; PULSE 58; RESP 15; TEMP 36; O2SAT 97; BMI 32.5
--- NOTE | 2020-09-06 21:38 | CT_ITS ---
LOW ABDOMEN/PELVIC PAIN,NAUSEA AND VOMITING X 2 MONTHSHX:HLD,HTN,GERD,MELANOMASURG:CHOLECYSTECTOMY,HYSTERECTOMY TECHNIQUE: Helically acquired images were obtained of the abdomen and pelvis following IV contrast. A radiation dose optimization technique was used for this scan. IV Contrast dosage and agent: 75mL [id number]-370 Oral contrast: None. COMPARISON: None FINDINGS: # of images incl. paperwork: 390 LOWER CHEST: Atelectasis in the lung bases. The heart is not enlarged LIVER: Homogeneous. No focal mass. GALLBLADDER AND BILIARY TREE: Cholecystectomy No intra- or extrahepatic biliary ductal dilation. KIDNEYS AND URETERS: Punctate calcifications are seen within the mid left kidney and the superior and inferior poles of the right kidney. These are nonobstructing. No hydronephrosis or hydroureter ADRENAL GLANDS: Non-enlarged. SPLEEN: Normal size without focal cystic or solid mass. PANCREAS: No focal cystic or solid mass. BOWEL: The stomach and small bowel are unremarkable The appendix is unremarkable Diverticulosis without evidence of diverticulitis LYMPH NODES: No enlarged mesenteric or retroperitoneal lymph nodes. PERITONEUM: No ascites or free air. No other fluid collection. VESSELS: Aorta is non-dilated. URINARY BLADDER: Poorly distended REPRODUCTIVE ORGANS: Hysterectomy ABDOMINAL WALL: No discrete abdominal or pelvic wall hernia observed. BONES: Degenerative changes in the lumbar spine with decreased disc space L3-4 and L4-5. Vacuum disc at L4-5. No acute osseous abnormality CT/Abdomen/Pelvis W IV Cont ONLY IMPRESSION: Cholecystectomy Nonobstructing calcifications in the kidneys bilaterally Diverticulosis without evidence of diverticulitis Degenerative changes in the lumbar spine Hysterectomy Individualized dose optimization techniques were used for this CT. at 2253 Reported and signed by: Leanna Sylvester DO Electronically Signed: Leanna Sylvester DO at 22:52 EST Tel , Service support ,
[2020-09-06] MEDS: 0.9% Normal Saline 1,000 ML 1000 ML IV (21:47)
[2020-09-06 21:53] LABS: Bacteria 0 SEEN /hpf (None Seen); Mucous, Urine 0 SEEN /hpf (<or=2+)
[2020-09-06 22:00] LABS: Color, Urine Yellow (Yellow); Glucose, Dipstick Normal (Normal); Ketone-Dipstick 5 mg/dl (Negative); Leukocyte Esterase-Dipstick 25 /ul (Negative); Nitrite-Dipstick Negative (Negative); Occult Blood-Urine 250 /ul (Negative); Protein-Dipstick 30 mg/dl (Negative); Urine Bilirubin Dipstick Negative (Negative); Urine Clarity Cloudy (Clear); Urine Urobilinogen 1 mg/dl (Normal)
[2020-09-06 22:02] LABS: Red Blood Cells-Urine > 100 SEEN /hpf (0-5)
[2020-09-06 22:02] LABS: Absolute Lymphocyte Count 4.65 X10^3/uL (0.83-4.51); Absolute Neutrophil Count 4.9 X10^3/uL (2.0-7.7); Basophil# 0.04 X10^3/uL; Basophil% 0.4 % (0-1); Eosinophil# 0.12 X10^3/uL; Eosinophils% 1.2 % (0-5); Hematocrit 39.9 % (37-47); Hemoglobin 12.6 g/dL (12.0-15.0); Lymphocyte # 4.65 X10^3/ul (4.0); Lymphocyte % 44.8 % (19-41); Mean Corp Hgb Conc 31.6 g/dL (32-36); Mean Corpuscular Hgb 30.8 pg (27.0-32.0); Mean Corpuscular Volume 97.6 fL (81-99); Mean Platelet Vol. 10.2 fl (6.2-12.0); Monocyte# 0.68 X10^3/uL; Monocyte% 6.5 % (0-10); NRBC Flagged by Analyzer 0 % (0-5); Neutrophil # 4.87 X10^3/uL (2.7-7.7); Neutrophil % 46.8 % (47-70); Platelet Count 260 K/mm3 (150-450); RBC Distribution Width CV 14.1 % (11.6-14.6); RBC Distribution Width SD 50.7 fl (35.1-43.9); Red Blood Count 4.09 M/mm3 (4.2-5.4); White Blood Count 10.4 K/mm3 (4.4-11.0)
[2020-09-06 22:03] LABS: Squamous Epithelial Cells - UA 0-5 SEEN /hpf (5-10); White Blood Cells 0-5 SEEN /hpf (0-5)
[2020-09-06 22:18] LABS: ALB/GLOB Ratio 1.1 RATIO (0.9-2.4); AST(SGOT) 14 U/L (15-37); Alanine Aminotransfer ALT/SGPT 26 U/L (13-56); Albumin, Serum 3.5 g/dL (3.2-5.0); Alkaline Phosphatase 77 U/L (45-117); Anion Gap 4 (5-15); BUN 18 mg/dL (7-18); BUN/Creat Ratio 20.8 RATIO (10-20); Chloride 109 mmol/L (98-107); Creatinine, Serum 0.87 mg/dL (0.55-1.02); EST Glomerular Filtration Rate 74 mL/min (>60); Est Glom Filt Rate - Afr Amer 90 mL/min (>60); Estimated Creatinine Clearance 65.42 ml/min; Globulin 3.3 g/dL (2.2-4.2); Glucose 99 mg/dL (74-106); Lipase 169 U/L (73-393); Potassium 3.7 mmol/L (3.5-5.1); Protein, Total 6.8 g/dL (6.4-8.2); Sodium Level 142 mmol/L (136-145)
[2020-09-06] MEDS: Ondansetron 4 MG/2 ML Vial IV (22:55)
[2020-09-06] MEDS: Morphine 4 MG/ML Syringe IV (22:56)
[2020-09-06 23:02] VITALS: BP 128/77; PULSE 55; RESP 17; O2SAT 97
--- NOTE | 2020-09-06 23:24 | ED.VISSUMM ---
- ER Visit Summary Date of Service: 09/06/20 Chief Complaint: Abdominal pain History of Present Illness: The patient is a 49 F with suprapubic pain that started earlier today. Nothing seemed to bring this on, but she did have an EGD and a colonoscopy yesterday. She had some biopsies, but overall the procedure went well. She has had some blood in her urine. Denies any other urinary symptoms. Denies any other GI symptoms. She had a remote hysterectomy. History of kidney stones. No fever or systemic symptoms. Physical Examination: Afebrile and vital signs unremarkable. Patient appears in no acute distress. Heart regular. Lungs clear. Abdomen tender in the suprapubic region. No guarding or rebound. Back is nontender. Skin appears normal. Test Results: CBC, CMP, lipase, urinalysis are all unremarkable except for blood in her urine. There is no sign of infection in the urine. CT was performed. This showed postoperative changes associate with cholecystectomy and hysterectomy. She has bilateral nonobstructing stones in her kidneys. She has diverticulosis without diverticulitis and other degenerative changes. Nothing acute. Emergency Department Course and Treatment: Patient initially declined pain medicine. While she was waiting for her results, she did request something for pain and was treated with morphine and Zofran. Work-up, as above. All fairly unremarkable except for the blood in her urine. She does have bilateral nonobstructing stones and a prior history of kidney stones. She may have passed a stone. There are no signs of infection in her blood work, vitals, CT, or symptomatology. I do not believe she has a UTI. There does not appear to be complications from the colonoscopy. Nothing acute on imaging. On reevaluation, the patient is doing well. She will be discharged home to follow-up with her surgeon as well as her PCP. She declined pain medicine or prescriptions. She did request a work note. She will return for worsening pain, bleeding, or any other new or concerning symptoms. Treatment Plan: As above Disposition: Discharge Impression: Abdominal pain, hematuria This note was generated with [employer] dictation software. It may contain incorrect words, spelling, and punctuation that were not noted in review of the chart prior to signing ED Disposition - Plan for ED Patient: Referrals: Catarino Flood DO [Primary Care Provider] -
--- NOTE | 2020-09-06 23:28 | ED.DEP ---
ED Disposition - Plan for ED Patient: Instructions: ED Abdominal Pain Unkn Cause Fem Referrals: Catarino Flood DO [Primary Care Provider] - Martha Walker MD [STAFF PHYSICIAN] -
== END 2020-09-06 23:32 | disposition home or self-care (01) ==
LOC: ED 21:49
PROVIDERS: Emergency Provider Emergency Medicine; PCP Family Medicine
DX: R10.9 Unspecified abdominal pain (principal); R31.9 Hematuria, unspecified; F17.200 Nicotine dependence, unspecified, uncomplicated; E78.00 Pure hypercholesterolemia, unspecified; I10 Essential (primary) hypertension; Z87.442 Personal history of urinary calculi
CPT/HCPCS: 74177; 80053; 81001; 83690; 85025; 96361; 96374; 96375; 99283; J7030; Q9967; A4216; J2405

== ENCOUNTER → 2020-09-14 16:05 | Outpatient (CLI) | payer MEDICAID, SELFPAY ==
[2020-07-28 14:02] VITALS: BMI 31.7
[2020-09-06 21:16] VITALS: BMI 32.5
--- NOTE | 2020-09-14 16:06 | BI_ITS ---
MAMMOGRAPHY - BILATERAL SCREENING REASON FOR EXAM: Female, 49 years old. Routine annual screening examination. PERTINENT HISTORY: Sister with breast cancer. Grandmother with breast cancer. TECHNIQUE: Digital bilateral breast ann (3D mammographic acquisition) in the CC and MLO projections. 2-D mediolateral oblique (MLO) and craniocaudad (CC) views of both breasts were obtained. CAD: Full Field Digital Mammography with Computer Added Detection was performed. COMPARISON: Comparison is made with prior outside examination dated 02/10/2019. FINDINGS: Breast Composition: There are scattered areas of fibroglandular density. There are no dominant masses or suspicious calcifications. There is a 5.8 mm well-defined nodule in the axillary region of the right breast suggestive of a small lymph node. No other significant abnormalities are identified. There has been no significant change since the prior study. BI/SCREEN MAMM (CAD) W/ANN BILAT IMPRESSION: Stable bilateral screening mammogram. Yearly follow-up mammogram recommended. (A) ASSESSMENT CATEGORY: BIRADS Category 2: Benign. A letter regarding these results will be sent to the patient by the facility within 30 days. Approximately 10% of breast cancers are not detected by mammography. A normal mammogram should not delay biopsy of a clinically suspicious abnormality. [id number] Electronically Signed: Johnathon Gil, at 8:18 EST , Service support ,
== END ==
PROVIDERS: PCP Family Medicine; Referring Provider Family Medicine; Visit Provider Family Medicine
DX: Z12.31 Encounter for screening mammogram for malignant neoplasm of breast (principal)
CPT/HCPCS: 77063; 77067

== ENCOUNTER → 2020-09-28 14:40 | Outpatient (CLI) | payer MEDICAID, SELFPAY ==
[2020-09-06 21:16] VITALS: BMI 32.5
--- NOTE | 2020-09-28 14:42 | US_ITS ---
STUDY: ULTRASOUND BREAST - LEFT REASON FOR EXAM: Female, 50 years old. Palpable lump left breast. TECHNIQUE: Axial and longitudinal images of the LEFT breast were performed with a high resolution ultrasound transducer. # OF IMAGES: 39 COMPARISON: Comparison is made with prior mammogram dated 03/04/2021. FINDINGS: LEFT Breast: A palpable lump was described in the region of the xiphoid process of the sternum. No sonographic abnormality is seen. The second lump that was described as in the left axilla. This corresponds to a benign-appearing 1 cm x 0.6 cm x 0.4 cm lymph node. US/Breast Limited Unilateral IMPRESSION: The axillary lump corresponds to a benign-appearing 1 cm x 0.6 cm x 0.4 cm lymph node. ASSESSMENT CATEGORY: BIRADS Category 2: Benign. A letter regarding these results will be sent to the patient by the facility within 30 days. Electronically Signed: Johnathon Gil MD at 15:36 EST , Service support ,
== END ==
PROVIDERS: PCP Family Medicine; Referring Provider Family Medicine; Visit Provider Family Medicine
DX: N63.0 Unspecified lump in unspecified breast (principal); R22.32 Localized swelling, mass and lump, left upper limb
CPT/HCPCS: 76642

== ENCOUNTER → 2021-08-24 15:36 | Outpatient (CLI) | payer MEDICAID, SELFPAY ==
--- NOTE | 2021-08-24 15:46 | VDLE_ITS ---
Reason For Study: Calf pain RIGHT LEFT CFV is compressible, spontaneous, phasic, GSV is normal. competent and demonstrates normal CFV is compressible, spontaneous, phasic, augmentation. competent, and demonstrates normal Procedure augmentation. This is a venous duplex using B-mode, color FV is compressible, spontaneous, phasic, flow and spectral Doppler. competent and demonstrates normal Exam performed in department. augmentation. A preliminary report was called and/or faxed POP V is compressible, spontaneous, phasic, to Remigio. competent and demonstrates normal augmentation. T/P Trunk is compressible. PTV is compressible. LT PerV is compressible. VL/Venous Duplex US, Unilateral Interpretation Summary Deep veins of the left lower extremity are patent and compressible segmentally. There is no evidence of left lower extremity deep vein thrombosis. Valvular competence appears intac t within the proximal deep venous system on the left . The left great saphenous vein appears patent a nd compressible segmentally. Ordering Physician: Catarino Flood Referring Physician: Catarino Folod Performed By: Gabi Larsen RVT
== END ==
PROVIDERS: PCP Family Medicine; Referring Provider Family Medicine; Visit Provider Family Medicine
DX: M79.662 Pain in left lower leg (principal)
CPT/HCPCS: 93971

== ENCOUNTER → 2022-04-03 | Outpatient (CLI) | payer MEDICAID, SELFPAY ==
--- NOTE | 2022-04-03 16:22 | BI_ITS ---
MAMMOGRAPHY - BILATERAL SCREENING REASON FOR EXAM: Female, 51 years old. Routine annual screening examination. PERTINENT HISTORY: Sister with breast cancer. Grandmother with breast cancer. TECHNIQUE: Digital bilateral breast ann (3D mammographic acquisition) in the CC and MLO projections. 2-D mediolateral oblique (MLO) and craniocaudad (CC) views of both breasts were obtained. CAD: Full Field Digital Mammography with Computer Added Detection was performed. COMPARISON: Comparison is made with prior study dated 09/14/2020. FINDINGS: Breast Composition: There are scattered areas of fibroglandular density. There are no dominant masses or suspicious calcifications. Stable 5.8 mm well-defined nodule in the axillary region of the right breast suggestive of a small lymph node. No other significant abnormalities are identified. There has been no significant change since the prior study. BI/SCRN MAMM (CAD)W/ANN BILAT IMPRESSION: Stable bilateral screening mammogram. Yearly follow-up mammogram recommended. (A) ASSESSMENT CATEGORY: BIRADS Category 2: Benign. A letter regarding these results will be sent to the patient by the facility within 30 days. Approximately 10% of breast cancers are not detected by mammography. A normal mammogram should not delay biopsy of a clinically suspicious abnormality. [id number] Electronically Signed: Johnathon Gil MD at 8:23 EDT ,
--- NOTE | 2022-04-03 16:45 | CT_ITS ---
STUDY: LOW DOSE CT LUNG CANCER SCREENING REASON FOR EXAM: Female, 51 years old. SCREENING FOR LUNG CA. The patient smoked half a pack per day for 25 years. RADIATION DOSAGE (If Supplied By Facility): CTDIvol = ( 2.37 ) mGy, DLP = ( 755.24 ) mGycm TECHNIQUE: No contrast was administered. Low dose technique was utilized (average mAS-38 and kVp 120). 1.25 mm axial source images with a slice interval of 1.25-mm were reconstructed in lung windows. 2.5 mm axial source images with a slice interval of 2.5-mm were reconstructed in lung windows. 5.0 mm axial source images with a slice interval of 5.0-mm were reconstructed in soft tissue windows. COMPARISON: None. NODULES: No suspicious nodules are seen. Emphysema: Hyperinflation. Endobronchial lesion: Aorta: Atherosclerotic plaque formation of the aortic arch. CORONARY ARTERIES: Coronary artery calcification is seen. Heart: Unremarkable Pulmonary artery: Unremarkable Mediastinal nodes: Small mediastinal lymph nodes. Other chest and abdominal findings: CT/Low Dose CT Lung Screening IMPRESSION: Lung-RADS category 2 - Continue annual screening with LDCT in 12 months. IMPORTANT NOTES FOR USE: ACR Lung-RADS Version 1.1 Assessment Categories Release Date: 2018 Category: Coded 0-4 bases on nodule(s) with highest degree of suspicion. Negative screen is defined as categories 1 and 2; a positive screen is defined as categories 3 and 4. Category 3 and 4A nodules that are unchanged on interval CT should be coded as category 2, and individuals returned to screening in 12 months. Category 4X: Category 3 or 4 nodules with additional imaging findings that increase the suspicion of lung cancer, such as spiculation, GGN that doubles in size in 1 year, enlarged lymph notes, etc. Category Modifiers: S (significant finding unrelated to lung cancer) Electronically Signed: Johnathon Gil MD at 13:13 EDT ,
== END | disposition home or self-care (01) ==
LOC: CT 16:20
PROVIDERS: PCP Family Medicine; Referring Provider Family Medicine; Visit Provider Family Medicine
DX: Z12.31 Encounter for screening mammogram for malignant neoplasm of breast (principal); Z12.2 Encounter for screening for malignant neoplasm of respiratory organs; F17.210 Nicotine dependence, cigarettes, uncomplicated
CPT/HCPCS: 71271; 77063; 77067

== ENCOUNTER 2022-09-19 13:28 | Day surgery (SDC) | payer MEDICAID, SELFPAY ==
[2022-09-19] VITALS (7 sets, daily range): BP systolic 115–142; BP diastolic 70–89; PULSE 57–74; RESP 16–18; TEMP 36.9–37.4; O2SAT 95–100; BMI 28.5
--- NOTE | 2022-09-19 13:32 | PCM.HP.STD ---
HPI - General HPI Narrative KAMLESH DIAZ, is a 52 F who presents for left carpal tunnel release ECTR. No changes to h and p. Wishes to proceed. Questions answered, recovery and risks discussed. MR#: [id number] Acct: [id number] Name:KAMLESH DE SANTIAGO Rep #: [id number] : 1970 ? ? Provider: Dr. Osiel Shetty MD Age/Sex:? 51/F ? ? Location: [facility] [place] Status: Signed with Addenda ADDENDUM by Dr. Osiel Shetty MD on 08/30/22 at 0801 Assessment and Plan Assessment and Plan (1) Carpal tunnel syndrome of left wrist: ?Status:?Chronic ?Plan: She is a smoker / tobacco user which increases the risks including infection of surgical complications. 08/30/22 0801 <Electronically signed by Osiel Shetty MD> Date Osiel Shetty MD cc: ? ~* Signed Intake Intake Visit Reasons:?LEFT WRIST Chief Complaint: left wrist Allergies varenicline [From Chantix] Adverse Reaction (Severe, Verified 08/28/22 13:02) GI upsetacetaminophen [From Vicodin] Adverse Reaction (Verified 08/28/22 13:02) Vomiting, upset stomachhydrocodone [From Vicodin] Adverse Reaction (Verified 08/28/22 13:02) Vomiting, upset stomachpregabalin [From Lyrica] Adverse Reaction (Verified 08/28/22 13:02) Shaking, upset stomach Medications fluoxetine 40 mg capsule (Prozac) 40 mg PO DAILY 10/07/19 [History Confirmed 08/28/22] albuterol sulfate 90 mcg/actuation aerosol inhaler (ProAir HFA) 2 puff inhalation Q8H PRN Sob &/Or Wheezing 12/15/19 [History Confirmed 08/28/22] gabapentin 400 mg capsule 400 mg PO QHS 12/15/19 [History Confirmed 08/28/22] loratadine 10 mg tablet 10 mg PO DAILY 12/15/19 [History Confirmed 08/28/22] oxycodone 10 mg tablet 10 mg PO Q6H PRN Pain 1-10 Or Fever 12/15/19 [History Confirmed 08/28/22] ibuprofen 800 mg tablet 800 mg PO Q8H PRN Pain 1-10 Or Fever 01/28/20 [History Confirmed 08/28/22] oxygen #1 ea 05/02/20 [History Confirmed 08/28/22] nadolol 20 mg tablet 20 mg PO BID #180 tabs 07/28/20 [Rx Confirmed 08/28/22] atorvastatin 80 mg tablet 80 mg PO QHS 08/31/20 [History Confirmed 08/28/22] cholecalciferol (vitamin D3) 1,250 mcg (50,000 unit) tablet (Dialyvite Vitamin D3 Max) 1,250 mcg PO QWEEK 08/31/20 [History Confirmed 08/28/22] montelukast 10 mg tablet 10 mg PO 07/10/22 [History Confirmed 08/28/22] umeclidinium 62.5 mcg-vilanterol 25 mcg/actuation powdr for inhalation (Anoro Ellipta) 1 inh inhalation 07/10/22 [History Confirmed 08/28/22] PFSH Medical History? Anxiety and depression Back pain Bilateral carotid artery stenosis Carpal tunnel syndrome of left wrist Chondrocostal junction syndrome [tietze] Chronic pain syndrome Cough Essential hypertension GERD (gastroesophageal reflux disease) Mixed hyperlipidemia Nonrheumatic mitral (valve) prolapse Paroxysmal tachycardia Premature ventricular contraction Tobacco abuse Surgical History? History of cholecystectomy History of melanoma excision History of total abdominal hysterectomy Family History? Mother Cancer ?? ? cervical Heart diseaseSister?? Cancer ?? ? lung Heart disease Social History? Tobacco: How many years used:? 20 alcohol intake:? never substance use type:? does not use caffeine:? Yes frequency:? daily seatbelt use:? always do you feel safe at home:? Yes additional social history:? [facility] HPI LEFT WRIST Details: Parts of this documentation were recorded by a scribe, this documentation accurately reflects the service provided and the decisions made by me, Dr. Osiel Shetty MD 08/28/22 2900. KAMLESH DIAZ is a 51 year old F here today for left nerve conduction studies for left wrist carpal tunnel syndrome. 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 Index and middle, rarely to 5th digit. Ortho Exam General General: Yes no acute distress Neurologic: Yes alert and Yes oriented x3 Psychologic: Yes reasonable and appropriate Right Wrist/Hand Skin/Wound: No Swelling and No Ecchymosis Left Wrist/Hand Skin/Wound: Yes CDI, No Swelling, No Ecchymosis, Yes nail intact, Yes capillary refill normal and No erythema Supplemental Info Nerve conduction studies from August 13, [facility] [place] findings 1.? The left median sensory latency at the wrist is very mildly prolonged.? The left median orthodromic and motor latencies are both within normal limits. 2.? No radicular or myelopathic abnormalities are noted. Coding Level of Care Code Off vis,est,level 3 Diagnoses Carpal tunnel syndrome of left wrist? G56.02 Assessment and Plan Assessment and Plan (1) Carpal tunnel syndrome of left wrist: ?Status:?Chronic ?Plan: 51 yr old F signs and symptoms consistent with left carpal tunnel syndrome.? She has tried a conservative trial of nighttime splinting and past history of cortisone injections.? She is desiring a surgical solution to this problem.? We discussed the pros and cons risks and benefits of continued nonoperative management versus carpal tunnel release either endoscopic or open.? Endoscopic may have a high rate of incomplete release however the return to work is shown to be sooner in the literature.? She would like to go ahead with surgery we signed the consent for left endoscopic carpal tunnel release possible need for blood products.? She understood had no further questions or concerns. Pros and cons risks and benefits were discussed with the patient including but not limited to infection, pain, stiffness, bleeding, damage to surrounding structures, neurovascular injury, recurrence or retear, failure or wear of hardware or fixation, instability, fracture, deep vein thrombosis and pulmonary embolism, anesthetic risks, patient dissatisfaction, need for further surgery and other risks.? Patient understood and wished to proceed with surgery, and signed the informed consent documentation. [facility] Medical History (Updated 09/11/22 @ 15:05 by Alta Szymanski) Anxiety Anxiety and depression Back pain Back pain Bilateral carotid artery stenosis Cardiology follow-up encounter Carpal tunnel syndrome of left wrist Chondrocostal junction syndrome [tietze] Chronic pain syndrome COPD (chronic obstructive pulmonary disease) Cough Depression Essential hypertension Gastric reflux GERD (gastroesophageal reflux disease) High cholesterol History of echocardiogram History of stress test Hypertension Migraine headache Mixed hyperlipidemia Nonrheumatic mitral (valve) prolapse Paroxysmal tachycardia Premature ventricular contraction Shortness of breath on exertion Smoker Tobacco abuse Wears dentures Wears glasses Wears partial dentures Home Medications fluoxetine 40 mg capsule (Prozac) 40 mg PO QHS 10/07/19 [History Last Taken Unknown] albuterol sulfate 90 mcg/actuation aerosol inhaler (ProAir HFA) 2 puff inhalation Q8H PRN Sob &/Or Wheezing 12/15/19 [History Last Taken Unknown] gabapentin 400 mg capsule 400 mg PO QHS 12/15/19 [History Last Taken Unknown] loratadine 10 mg tablet 10 mg PO DAILY 12/15/19 [History Last Taken Unknown] ibuprofen 800 mg tablet 800 mg PO Q8H PRN Pain 1-10 Or Fever 01/28/20 [History Last Taken Unknown] oxygen #1 ea 05/02/20 [History Last Taken Unknown] nadolol 20 mg tablet 20 mg PO BID #180 tabs 07/28/20 [Rx Last Taken Unknown] atorvastatin 80 mg tablet 80 mg PO QHS 08/31/20 [History Last Taken Unknown] cholecalciferol (vitamin D3) 1,250 mcg (50,000 unit) tablet (Dialyvite Vitamin D3 Max) 1,250 mcg PO QWEEK 08/31/20 [History Last Taken Unknown] montelukast 10 mg tablet 10 mg PO DAILY 07/10/22 [History Last Taken Unknown] umeclidinium 62.5 mcg-vilanterol 25 mcg/actuation powdr for inhalation (Anoro Ellipta) 1 inh inhalation DAILY 07/10/22 [History Last Taken Unknown] Allergy/AdvReac Type Severity Reaction Status Date / Time varenicline [From Chantix] AdvReac Severe GI upset Verified 09/11/22 14:55 acetaminophen [From Vicodin] AdvReac Vomiting, Verified 09/11/22 14:55 upset stomach hydrocodone [From Vicodin] AdvReac Vomiting, Verified 09/11/22 14:55 upset stomach pregabalin [From Lyrica] AdvReac Shaking, Verified 09/11/22 14:55 upset stomach Family History Mother Cancer cervical Heart disease Sister Cancer lung Heart disease Surgical History (Updated 09/11/22 @ 15:09 by Alta Szymanski) History of cholecystectomy History of melanoma excision History of total abdominal hysterectomy Hx laparoscopic cholecystectomy Hx of colonoscopy Hx of hysterectomy, total Social History Smoking Status: Current every day smoker tobacco type: cigarettes Tobacco: How many years used: 20 alcohol intake: never substance use type: does not use caffeine: Yes frequency: daily seatbelt use: always do you feel safe at home: Yes additional social history: [facility]
[2022-09-19] MEDS: Lactated Ringers 1,000 ML 15 ML IV (13:52)
[2022-09-19] MEDS: Cefazolin 2 GM in 0.9% Normal Saline 100 ML IV (15:58)
--- NOTE | 2022-09-19 16:31 | OP.PCM_ITS ---
Problems Associated Problem List Diagnoses (1) Carpal tunnel syndrome of left wrist: Report of Operation Date of Procedure: 09/19/22 Pre-Operative Diagnosis: left carpal tunnel syndrome Post-Operative Diagnosis: same Surgery/Procedure Performed:: left endoscopic carpal tunnel release Surgeon: Osiel Shetty Type of Anesthesia: Local MAC Anesthesiologist: Gilmar Solis Special Medications: 1cc 0.25% bupivicaine Estimated Blood Loss (mL): 10 Description of Procedure: Patient was brought to the operating room theater.? The patient was administered 2 g of IV Ancef prior to the start of the procedure.? Placed supine on the operating room table.? Anesthesia induced. ? SCDs on the legs.? Tourniquet applied to the operative extremity, appropriately padded. Arm table used. Operative extremity prepped and draped in the usual sterile fashion with chlorhexidine-based prep solution allowing over 3 minutes drying time prior to draping.? Preoperative timeout performed to confirm the site patient and the surgery. I began by using eschmar to exsanguinate, elevating the limb and inflating the tourniquet to 250 mmHg. 1cc 0.25% bupivicaine at incision site. Used the [employer] center line endoscopic carpal tunnel kit / technique.? I made a transverse 2 cm incision in line with the? transverse wrist crease.? This was in line with the fourth digit.? I carried the dissection down through skin and subcutaneous tissue achieved meticulous hemostasis. Just ulnar to palmaris tendon.? I incised the antebrachial fascia.? I passed sequential dilators into the carpal tunnel along the radial border of the Guyon's canal aiming for the fourth digit with the hand in extension.? I used a synovial elevator to identify the transverse fibers of the transverse carpal tunnel ligament.? Passed the scope into the carpal tunnel. Once I had identified the full proximal and distal extent of the ligament I fully released the ligament under direct visualization by deploying the blade and slowly withdrawing the scope made sequential passes until I no longer felt tension as well as the entire extent of the ligament was released under direct visualization.?Sounded the tunnel with barrios tenotomy scissors, complete release, no bands. Arthroscope light was more visible through the skin. Pictures taken and saved. Wound thoroughly irrigated.? Tourniquet let down prior to end of the case and meticulous hemostasis achieved.? Thorough irrigation.? ? Incision closed with 3- 0 Monocryl.? Steri-Strips were applied after the skin was cleaned and dried. Adaptic gauze and Harris wrap was then applied.? Patient woken up, transferred off the operating room table and taken to postanesthetic care unit in stable condition. All sponge needle instrument counts were correct no complications.? Plan for the patient to be discharged home according to day surgery criteria when they are comfortable. Follow-up in the office in 2 days time. Complications none Admit VTE Documentation VTE Present on Admission: No VTE Mechan Device Prophylaxis: None VTE Pharm Prophylaxis ordered?: No Reason prophylaxis not ordered:: Treatment Not Indicated Procedures Musculoskeletal [id number]: Other Procedure See Report
--- NOTE | 2022-09-19 16:35 | DCINST_ITS ---
Discharge Instructions Diet Discharge Diet: No restrictions Activity Discharge Activity: Return to Normal Activity Ice area for (Minutes): 10 Lifting Restrictions: ROM of hand and wrist, no heavy lifting or gripping Keep extremity elevated above heart level: Operative Extremity Dressing / Incision Call your doctor if your incision/area has: Continuous Slow Oozing, Sudden Increased Bleeding, Increased Pain/ Swelling, Increased Redness, Foul Smelling Discharge and Swelling at the incision site Change Dressing in: do not change dressing Follow Up Care Please Follow Up With: Osiel Shetty MD When: 2 days Test Results: Test results from this visit will be discussed in further detail at your follow- up appointment, if applicable. Discharge Plan Admission Attending Provider: Osiel Shetty Primary Care Provider: Catarino Flood Discharge Orders/Prescriptions Prescriptions: No Action fluoxetine [Prozac] 40 mg capsule 40 mg PO QHS ibuprofen 800 mg tablet 800 mg PO Q8H PRN (Reason: Pain 1-10 Or Fever) loratadine 10 mg tablet 10 mg PO DAILY gabapentin 400 mg capsule 400 mg PO QHS albuterol sulfate [ProAir HFA] 90 mcg/actuation HFA aerosol inhaler 2 puff INHALATION Q8H PRN (Reason: Sob &/Or Wheezing) atorvastatin 80 mg tablet 80 mg PO QHS (DME) oxygen Qty: 1 Rx Instructions: 2LNC @ QHS nadolol 20 mg tablet 20 mg PO BID Qty: 180 3RF Dialyvite Vitamin D3 Max 1,250 mcg (50,000 unit) tablet 1,250 mcg PO QWEEK Anoro Ellipta 62.5-25 mcg/actuation blister with device 1 inh inhalation DAILY Label Comments: inhale 1 puff by mouth once daily montelukast 10 mg tablet 10 mg PO DAILY Referrals / Follow Up: Catarino Flood DO [Primary Care Provider] - Disposition Discharge Orders: Discharge Patient (Routine); Ordered 09/19/22 Ordered By: Osiel Shetty
== END 2022-09-19 18:00 | disposition home or self-care (01) ==
LOC: SDC 13:29 → AC 13:31
PROVIDERS: PCP Family Medicine; Referring Provider Orthopaedic Surgery Sports Medicine; Visit Provider Orthopaedic Surgery Sports Medicine
PROC: (CPT 29848; principal; 2022-09-19 15:00)
DX: G56.02 Carpal tunnel syndrome, left upper limb (principal); J44.9 Chronic obstructive pulmonary disease, unspecified; I10 Essential (primary) hypertension; E78.2 Mixed hyperlipidemia; F17.210 Nicotine dependence, cigarettes, uncomplicated; Z79.899 Other long term (current) drug therapy
CPT/HCPCS: 29848; 01810; J2405

== ENCOUNTER → 2023-02-14 | Outpatient (CLI) | payer MEDICAID, SELFPAY ==
[2023-02-14 18:21] LABS: Amphetamine Urine VISTA NEGATIVE (<1000 ng/mL); Barbiturate Urine VISTA NEGATIVE (< 200 ng/mL); Benzodiazepine Urine VISTA NEGATIVE (< 200 ng/mL); Cocaine Urine VISTA NEGATIVE (< 300 ng/mL); Ecstacy Urine VISTA NEGATIVE (< 500 ng/mL); Methadone Urine VISTA NEGATIVE (< 300 ng/mL); PCP Urine VISTA NEGATIVE (< 25 ng/mL); THC Urine VISTA NEGATIVE (< 50 ng/mL); Vista UDS pH Range 5
[2023-02-14 18:23] LABS: OXY Internal Control LINE = VALID (VALID); Oxycodone Drug Screen Positive (<100 ng/mL)
== END | disposition home or self-care (01) ==
LOC: LABSPEC 15:57
PROVIDERS: PCP Family Medicine; Referring Provider Family Medicine; Visit Provider Family Medicine
DX: Z79.899 Other long term (current) drug therapy (principal)
CPT/HCPCS: 80365; 80307; G0480

== ENCOUNTER 2023-05-29 11:52 | Day surgery (SDC) | payer SELFPAY ==
[2023-05-29] MEDS: Lactated Ringers 1,000 ML 15 ML IV (12:46)
[2023-05-29 12:48] VITALS: BP 143/85; PULSE 62; RESP 16; TEMP 37; O2SAT 97; BMI 30.4
[2023-05-29 12:48] LABS: Hematocrit 35.1 % (37-47); Hemoglobin 11.1 g/dL (12.0-15.0); Mean Corp Hgb Conc 31.6 g/dL (32-36); Mean Corpuscular Hgb 30.7 pg (27.0-32.0); Mean Platelet Vol. 9.2 fl (6.2-12.0); Platelet Count 253 K/mm3 (150-450); RBC Distribution Width CV 14.2 % (11.6-14.6); RBC Distribution Width SD 51.3 fl (35.1-43.9); Red Blood Count 3.62 M/mm3 (4.2-5.4); White Blood Count 6.7 K/mm3 (4.4-11.0)
--- NOTE | 2023-05-29 12:49 | PCM.HP.STD ---
HPI - General HPI Narrative KAMLESH DIAZ, is a 52 F who presents for right ankle open reduction internal fixation, possible syndesmosis repair. No changes to h and p. Right ankle marked. OK to proceed. RAB discussed, and narcotic counselling and post op instructions. MR#: [id number] Acct: [id number] Name: KAMLESH DIAZ Rep #: [id number] : 1970 Provider: Dr. Osiel Shetty MD Age/Sex: 52/F Location: [facility] [place] Status: Signed with Addenda ADDENDUM by Dr. Osiel Shetty MD on 05/29/23 at 1248 Assessment and Plan Assessment and Plan (1) Closed fracture of right distal fibula: Status: Acute Plan: Pros and cons risks and benefits were discussed with the patient including but not limited to infection, pain, stiffness, bleeding, damage to surrounding structures, neurovascular injury, recurrence or retear, failure or wear of hardware or fixation, instability, fracture, deep vein thrombosis and pulmonary embolism, anesthetic risks, , patient dissatisfaction, need for further surgery and other risks. Patient understood and wished to proceed with surgery, and signed the informed consent documentation. Orders: Orders Ankle min 3 Views 05/27/23 S82.831A - Other fracture of upper and lower end of right fibula, initial encounter for closed fracture 05/29/23 1248 <Electronically signed by Osiel Shetty MD> Date Osiel Shetty MD cc: ~* Signed Intake Vital Signs 09/19/2312:53 Height 5 ft 3 in Intake Visit Reasons: RIGHT FOOT Is patient in pain?: Yes Pain scale (1-10): 5 Allergies varenicline [From Chantix] Adverse Reaction (Severe, Verified 05/27/23 13:19) GI upsetacetaminophen [From Vicodin] Adverse Reaction (Verified 05/27/23 13:19) Vomiting, upset stomachhydrocodone [From Vicodin] Adverse Reaction (Verified 05/27/23 13:19) Vomiting, upset stomachpregabalin [From Lyrica] Adverse Reaction (Verified 05/27/23 13:19) Shaking, upset stomach Medications fluoxetine 40 mg capsule (Prozac) 40 mg PO QHS 10/07/19 [History Confirmed 05/27/23] albuterol sulfate 90 mcg/actuation aerosol inhaler (ProAir HFA) 2 puff inhalation Q8H PRN Sob &/Or Wheezing 12/15/19 [History Confirmed 05/27/23] gabapentin 400 mg capsule 400 mg PO QHS 12/15/19 [History Confirmed 05/27/23] loratadine 10 mg tablet 10 mg PO DAILY 12/15/19 [History Confirmed 05/27/23] ibuprofen 800 mg tablet 800 mg PO Q8H PRN Pain 1-10 Or Fever 01/28/20 [History Confirmed 05/27/23] oxygen #1 ea 05/02/20 [History Confirmed 05/27/23] nadolol 20 mg tablet 20 mg PO BID #180 tabs 07/28/20 [Rx Confirmed 05/27/23] atorvastatin 80 mg tablet 80 mg PO QHS 08/31/20 [History Confirmed 05/27/23] cholecalciferol (vitamin D3) 1,250 mcg (50,000 unit) tablet (Dialyvite Vitamin D3 Max) 1,250 mcg PO QWEEK 08/31/20 [History Confirmed 05/27/23] montelukast 10 mg tablet 10 mg PO DAILY 07/10/22 [History Confirmed 05/27/23] umeclidinium 62.5 mcg-vilanterol 25 mcg/actuation powdr for inhalation (Anoro Ellipta) 1 inh inhalation DAILY 07/10/22 [History Confirmed 05/27/23] pantoprazole 40 mg tablet,delayed release 40 mg PO 05/27/23 [History Confirmed 05/27/23] PFS Medical History (Updated 05/27/23 @ 13:30 by Osiel Shetty MD) Anxiety Anxiety and depression Back pain Back pain Bilateral carotid artery stenosis Cardiology follow-up encounter Carpal tunnel syndrome of left wrist Chondrocostal junction syndrome [tietze] Chronic pain syndrome Closed fracture of right distal fibula COPD (chronic obstructive pulmonary disease) Cough Depression Essential hypertension Gastric reflux GERD (gastroesophageal reflux disease) High cholesterol History of echocardiogram History of stress test Hypertension Migraine headache Mixed hyperlipidemia Nonrheumatic mitral (valve) prolapse Paroxysmal tachycardia Premature ventricular contraction Shortness of breath on exertion Smoker Tobacco abuse Wears dentures Wears glasses Wears partial dentures Surgical History History of cholecystectomy History of melanoma excision History of total abdominal hysterectomy Hx laparoscopic cholecystectomy Hx of colonoscopy Hx of hysterectomy, total Family History Mother Cancer cervical Heart diseaseSister Cancer lung Heart disease Social History Smoking Status: Current every day smoker tobacco type: cigarettes Tobacco: How many years used: 20 alcohol intake: never substance use type: does not use caffeine: Yes frequency: daily seatbelt use: always do you feel safe at home: Yes additional social history: [facility] RIGHT FOOT Details: Parts of this documentation were recorded by a scribe, this documentation accurately reflects the service provided and the decisions made by me, Dr. Osiel Shetty MD 05/27/23 1314. KAMLESH DIAZ is a 52 year old F here today for foot injury. Was told there was a fracture by [facility]. tripped up by the dog a couple days ago. ankle and foot hurts. Ortho Exam General General: Yes no acute distress Neurologic: Yes alert and Yes oriented x3 Psychologic: Yes reasonable and appropriate Right Foot/Ankle Skin/Wound: Yes CDI, Ecchymosis and Soft Tissue Swelling; No Erythema Exam: present tender to palpate - over fracture site, TTP Lateral Malleolus, TTP ATFL and TTP Medial Malleolus; absent TTP Deltoid Ligament, TTP Lisfranc Joint, TTP distal 5th metatarsal, tender to palpate calcaneofibular ligament, TTP Retrocalcaneal bursa, TTP Peroneal or peroneal snapping Dorsiflexion 0-20: 0 degrees Plantar Flexion 0-40: 40 degrees Compartments: Compartments: soft ROM: present pain with range of motion Tests: Mcghee Test: 1 and Squeeze Test: 1 Motor: Ankle Dorsiflextion: 4, Ankle Plantar Flexion: 4, Ankle Eversion: 4, Ankle Inversion: 4 and EHL: 4 Sensation: Deep Peroneal Nerve: I, Superficial Peroneal Nerve: I, Tibial Nerve: I, Sural Nerve: I and Saphenous Nerve: I Pulses: Dorsalis Pedis: 2 and Posterior Tibial: 2 ANKLE: no pain at the foot or heel, no pain at the calf. closed Supplemental Info XR review on a disc from [facility]. distal fibula fracture, some comminution evident, and on mortise view medial clear space up to 5mm. austin B repeat films including gravity stress ER --shows the same increase medial clear space of 5 mm with displacement of the distal fibula fracture up to 3 mm. Coding Level of Care Code Off vis,new,level 3 Diagnoses Closed fracture of right distal fibula S82.831A Assessment and Plan Assessment and Plan (1) Closed fracture of right distal fibula: Status: Acute Plan: 52 F isolated distal fibula fracture, Austin B with lateral talar shift medial clear space 5mm. Per the literature any talar shift and syndesmosis instability can greatly increase contact pressures on the talus resulting in greater risk for OA, therefore anatomic reduction of the ankle would be indicated to correct that. The risk of non operatvive would be ankle instability and ankle OA. Risks of surgery discussed, and possible need for syndesmosis fixation so will have available arthrex tight rope and screws as options . She was to proceed with right ankle open reduction internal fixation, possible syndesmosis repair. They are otherwise healthy no anticoagulation will proceed with a preoperative clearance ideally at the end of this week or early next week. In the meantime okay to remain in the orthosis boot rest ice and elevate for pain and swelling control. She understood no further questions or concerns. [facility], [facility] Medical History (Updated 05/28/23 @ 10:10 by Li Conner) Anxiety Anxiety and depression Back pain Back pain Bilateral carotid artery stenosis Cardiology follow-up encounter Carpal tunnel syndrome of left wrist Chondrocostal junction syndrome [tietze] Chronic pain syndrome Closed fracture of right distal fibula COPD (chronic obstructive pulmonary disease) Depression Essential hypertension Gastric reflux GERD (gastroesophageal reflux disease) High cholesterol History of echocardiogram History of stress test Hypertension Migraine headache Mixed hyperlipidemia Nonrheumatic mitral (valve) prolapse Paroxysmal tachycardia Premature ventricular contraction Shortness of breath on exertion Smoker Tobacco abuse Wears dentures Wears glasses Wears partial dentures Home Medications fluoxetine 40 mg capsule (Prozac) 80 mg PO QHS 10/07/19 [History Last Taken 09/18/22] albuterol sulfate 90 mcg/actuation aerosol inhaler (ProAir HFA) 2 puff inhalation Q8H PRN Sob &/Or Wheezing 12/15/19 [History Last Taken 09/18/22] gabapentin 400 mg capsule 400 mg PO QHS 12/15/19 [History Last Taken 09/18/22] ibuprofen 800 mg tablet 800 mg PO Q8H PRN Pain 1-10 Or Fever 01/28/20 [History Last Taken 09/18/22] oxygen #1 ea 05/02/20 [History Last Taken 09/18/22] atorvastatin 80 mg tablet 80 mg PO QHS 08/31/20 [History Last Taken 09/18/22] cholecalciferol (vitamin D3) 1,250 mcg (50,000 unit) tablet (Dialyvite Vitamin D3 Max) 1,250 mcg PO .[id number] 08/31/20 [History Last Taken 09/18/22] umeclidinium 62.5 mcg-vilanterol 25 mcg/actuation powdr for inhalation (Anoro Ellipta) 1 inh inhalation DAILY 07/10/22 [History Last Taken 09/18/22] pantoprazole 40 mg tablet,delayed release 40 mg PO DAILY 05/27/23 [History Last Taken 05/29/23] cyclobenzaprine 10 mg tablet 10 mg PO QHS 05/28/23 [History Last Taken Unknown] lisinopril 10 mg tablet 10 mg PO DAILY 05/28/23 [History Last Taken 05/29/23] nadolol 20 mg tablet 20 mg PO DAILY 05/28/23 [History Last Taken 05/29/23] naproxen 500 mg tablet 500 mg PO BID 05/28/23 [History Last Taken Unknown] oxycodone-acetaminophen 10 mg-325 mg tablet 1 tab PO Q6H PRN pain 05/28/23 [History Last Taken Unknown] Allergy/AdvReac Type Severity Reaction Status Date / Time varenicline [From Chantix] AdvReac Severe GI upset Verified 05/29/23 12:35 acetaminophen [From Vicodin] AdvReac Vomiting, Verified 05/29/23 12:35 upset stomach hydrocodone [From Vicodin] AdvReac Vomiting, Verified 05/29/23 12:35 upset stomach pregabalin [From Lyrica] AdvReac Shaking, Verified 05/29/23 12:35 upset stomach Family History Mother Cancer cervical Heart disease Sister Cancer lung Heart disease Surgical History (Updated 05/28/23 @ 10:10 by Li Conner) History of carpal tunnel surgery of left wrist History of cholecystectomy History of melanoma excision History of total abdominal hysterectomy Hx laparoscopic cholecystectomy Hx of colonoscopy Hx of hysterectomy, total Social History Smoking Status: Current every day smoker tobacco type: cigarettes Tobacco: How many years used: 20 alcohol intake: never substance use type: does not use caffeine: Yes frequency: daily seatbelt use: always do you feel safe at home: Yes additional social history: [facility] Results Lab / Micro Data 05/29/23 12:40 Labs: Laboratory Results - last 24 hr 05/29/23 12:40: WBC 6.7, RBC 3.62 L, Hgb 11.1 L, Hct 35.1 L, MCV 97.0, MCH 30.7, MCHC 31.6 L, RDW Std Deviation 51.3 H, RDW Coeff of Kimberly 14.2, Plt Count 253, MPV 9.2
[2023-05-29] MEDS: Cefazolin 2 GM in 0.9% Normal Saline (100mL Bag) 100 ML IV (13:32)
--- NOTE | 2023-05-29 13:50 | RAD_ITS ---
STUDY: X-RAY - RIGHT ANKLE REASON FOR EXAM: Female, 52 years old. Fracture. TECHNIQUE: 4 intraoperative spot films of the right ankle. COMPARISON: Right ankle radiographs dated 05/27/2023. FINDINGS: There is a new metallic sideplate with multiple fixation screws in the distal fibula, bridging the previously seen distal fibular fracture. Normal visualized distal tibia. Normal medial malleolus. Normal tibiotalar articulation and ankle mortise. Normal visualized talus and calcaneus. The visualized subtalar, talonavicular, calcaneocuboid and tarsal articulations are normal. RAD/Ankle 2 Views IMPRESSION: New metallic sideplate with multiple fixation screws in the distal fibula, bridging the previously seen distal fibular fracture. Electronically Signed: Grzegorz Sotomayor MD at 14:45 EDT ,
--- NOTE | 2023-05-29 14:31 | OP.PCM_ITS ---
Problems Associated Problem List Diagnoses (1) Closed fracture of right distal fibula: Report of Operation Date of Procedure: 05/29/23 Pre-Operative Diagnosis: R ankle fracture Post-Operative Diagnosis: same Surgery/Procedure Performed:: Right ankle open reduction internal fixation Surgeon: Osiel Shetty screening unit registered nurse: None Type of Anesthesia: Block,Regional and General Anesthesiologist: Delonte Haddad Estimated Blood Loss (mL): 30 Description of Procedure: Patient brought to the operating room theater. Placed supine on the table. 2 g IV Ancef administered prior to the start of the procedure. General anesthesia induced. Bump under the right hip right lower extremity elevated with blankets. Tourniquet applied to the right thigh appropriately padded. All bony prominences padded. SCD on the nonoperative leg. Operative side prepped and draped in the usual sterile fashion with chlorhexidine-based prep solution allowing over 3 minutes drying time prior to draping. Preoperative timeout performed to confirm the site the patient and the surgery. Began by elevating the limb inflating the tourniquet to 250 mmHg. Made a standard direct lateral incision to the distal fibula. Carried the dissection down through skin and subcutaneous tissue achieved meticulous hemostasis. Protected the superficial peroneal nerve. Dissected down onto bone. Identified the fracture site. Cleared away any interposed fracture hematoma and periosteum. Achieved a preliminary reduction with the aid of fracture reduction forceps. Ensure the reduction was anatomic in 3 different planes. Overdrilled for a lag screw with a 2.5 mm drill then drilled the proximal cortex with a 3.5 mm drill. Passed a 24 mm long 3.5 mm diameter lag screw across the fracture this held it nicely in compression. Remove the clamp. Fracture stable. Selected a Arthrex one third tubular plate. Precontoured this on the lateral aspect of the bone. Placed 4 proximal fully threaded cortical screws to secure the plate down to bone and then 2 cancellous screws distally. This achieved good seating and anatomic alignment of the fracture site. I then turned my attention to testing the syndesmosis performed external rotation stress test, direct laterally directed force at the ankle, as well as cotton/hook test. These all showed normal alignment of the mortise and syndesmosis normal overlap of the tibiofibular area as well as normal medial clear space symmetric and judged to be under 4mm. Therefore the syndesmosis was judged to be stable and I did not pass any fixation across the 2 bones. Case was terminated tourniquet let down final radiographs were taken and saved onto the system AP lateral and mortise view including the stress tests. Wounds thoroughly irrigated with normal saline. Subcutaneous tissue closed with 2-0 Vicryl suture and skin with 3-0 Monocryl. Skin cleaned with wet and dry dressing. Steri-Strips applied followed by Adaptic 4 x 4 gauze ABD dressing sterile cast padding with a posterior prefabricated fiberglass splint with the foot and ankle in neutral. This was overwrapped with Harris bandage. Splint was allowed to fully harden patient woken up from the general anesthetic transferred off the operating table and taken to postanesthetic care unit in stable condition. All sponge needle instrument counts were correct. cpt [id number] Complications none Admit VTE Documentation VTE Present on Admission: No VTE Mechan Device Prophylaxis: SCD's VTE Pharm Prophylaxis ordered?: No Reason prophylaxis not ordered:: Treatment Not Indicated Procedures Musculoskeletal [id number]: Other Procedure See Report
[2023-05-29 14:36] VITALS: BP 143/85; BP 158/80; PULSE 62; RESP 18; TEMP 36.8; O2SAT 96
--- NOTE | 2023-05-29 14:43 | DCINST_ITS ---
Discharge Instructions Diet Discharge Diet: No restrictions Activity Discharge Activity: Use Crutches Ice area for (Minutes): 10 Weight Bearing Status: No weight bearing Keep extremity elevated above heart level: Operative Extremity Dressing / Incision Call your doctor if your incision/area has: Continuous Slow Oozing, Sudden Increased Bleeding, Increased Pain/ Swelling, Increased Redness, Foul Smelling Discharge and Swelling at the incision site Remove Dressing in: leave in place till F/U Cleanse incision/area with: Do not get Incision Wet Follow Up Care Please Follow Up With: Osiel Shetty MD When: 2 days Test Results: Test results from this visit will be discussed in further detail at your follow- up appointment, if applicable. Discharge Plan Admission Attending Provider: Osiel Shetty Primary Care Provider: Catarino Flood Discharge Orders/Prescriptions Prescriptions: New oxycodone-acetaminophen [Percocet] 5-325 mg tablet 1 tab PO Q4H MDD 6 PRN (Reason: pain) 5 Days Qty: 20 0RF No Action fluoxetine [Prozac] 40 mg capsule 80 mg PO QHS ibuprofen 800 mg tablet 800 mg PO Q8H PRN (Reason: Pain 1-10 Or Fever) gabapentin 400 mg capsule 400 mg PO QHS albuterol sulfate [ProAir HFA] 90 mcg/actuation HFA aerosol inhaler 2 puff INHALATION Q8H PRN (Reason: Sob &/Or Wheezing) atorvastatin 80 mg tablet 80 mg PO QHS (DME) oxygen Qty: 1 Rx Instructions: 2LNC @ QHS cholecalciferol (vitamin D3) [Dialyvite Vitamin D3 Max] 1,250 mcg (50,000 unit) tablet 1,250 mcg PO .[id number] Anoro Ellipta 62.5-25 mcg/actuation blister with device 1 inh inhalation DAILY Patient Comments: inhale 1 puff by mouth once daily pantoprazole 40 mg tablet,delayed release (DR/EC) 40 mg PO DAILY Patient Comments: TAKE 1 TABLET BY MOUTH 1 TIMES A DAY naproxen 500 mg tablet 500 mg PO BID Patient Comments: TAKE 1 TABLET BY MOUTH 2 TIMES A DAY oxycodone-acetaminophen 10-325 mg tablet 1 tab PO Q6H PRN (Reason: pain) Patient Comments: TAKE 1 TABLET BY MOUTH EVERY 4 TO 6 HOURS NEEDED FOR INTRACTABLE PAIN. MAX OF 4 TABLETS DAILY cyclobenzaprine 10 mg tablet 10 mg PO QHS Patient Comments: TAKE 1 TABLET BY MOUTH EVERY DAY AT NIGHT lisinopril 10 mg tablet 10 mg PO DAILY Patient Comments: TAKE 1 TABLET BY MOUTH EVERY DAY nadolol 20 mg tablet 20 mg PO DAILY Referrals / Follow Up: Catarino Flood DO [Primary Care Provider] - Osiel Shetty MD [Med Staff - Active Staff] - Disposition Disposition (needs filled in before D/C Order can be placed): Home, Self Care
[2023-05-29 14:45] VITALS: BP 143/85; BP 159/90; PULSE 60; RESP 18; O2SAT 99
[2023-05-29 14:59] VITALS: BP 143/85; BP 145/88; PULSE 64; RESP 18; O2SAT 98
[2023-05-29 15:08] VITALS: BP 143/85; BP 148/83; PULSE 67; RESP 18; TEMP 36.5; O2SAT 98
--- NOTE | 2023-05-29 15:27 | DCINST_ITS ---
Discharge Instructions Diet Discharge Diet: No restrictions Activity Ice area for (Minutes): 10 Weight Bearing Status: No weight bearing Keep extremity elevated above heart level: Operative Extremity Dressing / Incision Call your doctor if your incision/area has: Continuous Slow Oozing, Sudden Increased Bleeding, Increased Pain/ Swelling, Increased Redness, Foul Smelling Discharge and Swelling at the incision site Cleanse incision/area with: Do not get Incision Wet Follow Up Care Please Follow Up With: Osiel Shetty MD Test Results: Test results from this visit will be discussed in further detail at your follow- up appointment, if applicable. Discharge Plan Admission Attending Provider: Osiel Shetty Primary Care Provider: Catarino Flood Discharge Orders/Prescriptions Prescriptions: New oxycodone 5 mg capsule 5 mg PO Q6H MDD 4 PRN (Reason: pain) 5 Days Qty: 20 0RF Rx Instructions: pharmacist refused to fill additional Percocet due to concerns with patient taking 3,000mg of acetaminophen a day, and suggested would only fill oxycodone 5mg tablets No Action fluoxetine [Prozac] 40 mg capsule 80 mg PO QHS ibuprofen 800 mg tablet 800 mg PO Q8H PRN (Reason: Pain 1-10 Or Fever) gabapentin 400 mg capsule 400 mg PO QHS albuterol sulfate [ProAir HFA] 90 mcg/actuation HFA aerosol inhaler 2 puff INHALATION Q8H PRN (Reason: Sob &/Or Wheezing) atorvastatin 80 mg tablet 80 mg PO QHS (DME) oxygen Qty: 1 Rx Instructions: 2LNC @ QHS cholecalciferol (vitamin D3) [Dialyvite Vitamin D3 Max] 1,250 mcg (50,000 unit) tablet 1,250 mcg PO .[id number] Anoro Ellipta 62.5-25 mcg/actuation blister with device 1 inh inhalation DAILY Patient Comments: inhale 1 puff by mouth once daily pantoprazole 40 mg tablet,delayed release (DR/EC) 40 mg PO DAILY Patient Comments: TAKE 1 TABLET BY MOUTH 1 TIMES A DAY naproxen 500 mg tablet 500 mg PO BID Patient Comments: TAKE 1 TABLET BY MOUTH 2 TIMES A DAY oxycodone-acetaminophen 10-325 mg tablet 1 tab PO Q6H PRN (Reason: pain) Patient Comments: TAKE 1 TABLET BY MOUTH EVERY 4 TO 6 HOURS NEEDED FOR INTRACTABLE PAIN. MAX OF 4 TABLETS DAILY cyclobenzaprine 10 mg tablet 10 mg PO QHS Patient Comments: TAKE 1 TABLET BY MOUTH EVERY DAY AT NIGHT lisinopril 10 mg tablet 10 mg PO DAILY Patient Comments: TAKE 1 TABLET BY MOUTH EVERY DAY nadolol 20 mg tablet 20 mg PO DAILY Referrals / Follow Up: Catarino Flood DO [Primary Care Provider] - Osiel Shetty MD [Med Staff - Active Staff] - Disposition Disposition (needs filled in before D/C Order can be placed): Home, Self Care
[2023-05-29 15:51] VITALS: BP 143/85
== END 2023-05-29 16:24 | disposition home or self-care (01) ==
LOC: SDC 11:56 → AC 11:57
PROVIDERS: Anesthesiology; PCP Family Medicine; Referring Provider Orthopaedic Surgery Sports Medicine; Visit Provider Orthopaedic Surgery Sports Medicine
PROC: (CPT 27784; principal; 2023-05-29 15:05)
DX: S82.831A Other fracture of upper and lower end of right fibula, initial encounter for closed fracture (principal); J44.9 Chronic obstructive pulmonary disease, unspecified; G89.4 Chronic pain syndrome; I10 Essential (primary) hypertension; F17.210 Nicotine dependence, cigarettes, uncomplicated; F41.9 Anxiety disorder, unspecified; F32.A Depression, unspecified; K21.9 Gastro-esophageal reflux disease without esophagitis; E78.00 Pure hypercholesterolemia, unspecified; I65.23 Occlusion and stenosis of bilateral carotid arteries; Z79.899 Other long term (current) drug therapy; X58.XXXA Exposure to other specified factors, initial encounter
CPT/HCPCS: 27784; 64445; 01392; 73600; 76000; 85027; 93005; C1713; J7120; J2405

== ENCOUNTER → 2023-07-31 | Outpatient (CLI) | payer SELFPAY ==
[2023-07-31 10:49] LABS: Absolute Lymphocyte Count 2.69 X10^3/uL (0.83-4.51); Absolute Neutrophil Count 6.4 X10^3/uL (2.0-7.7); Basophil# 0.07 X10^3/uL; Basophil% 0.7 % (0-1); Eosinophil# 0.18 X10^3/uL; Eosinophils% 1.8 % (0-5); Hematocrit 36.5 % (37-47); Hemoglobin 11.1 g/dL (12.0-15.0); Lymphocyte # 2.69 X10^3/ul (0.83-4.51); Lymphocyte % 26.7 % (19-41); Mean Corp Hgb Conc 30.4 g/dL (32-36); Mean Corpuscular Volume 98.6 fL (81-99); Monocyte# 0.73 X10^3/uL; Monocyte% 7.2 % (0-10); NRBC Flagged by Analyzer 0 % (0-5); Neutrophil # 6.38 X10^3/uL (2.7-7.7); Neutrophil % 63.2 % (47-70); Platelet Count 276 K/mm3 (150-450); RBC Distribution Width CV 14.1 % (11.6-14.6); RBC Distribution Width SD 51.5 fl (35.1-43.9); White Blood Count 10.1 K/mm3 (4.4-11.0)
[2023-07-31 11:04] LABS: CRP 6.41 mg/L (0.0-3.0)
== END | disposition home or self-care (01) ==
PROVIDERS: PCP Family Medicine; Referring Provider Orthopaedic Surgery Sports Medicine; Visit Provider Orthopaedic Surgery Sports Medicine
DX: S82.831A Other fracture of upper and lower end of right fibula, initial encounter for closed fracture (principal); B99.9 Unspecified infectious disease
CPT/HCPCS: 36415; 85025; 86140

== ENCOUNTER → 2023-11-14 | Outpatient (CLI) | payer SELFPAY | END | disposition home or self-care (01) | LOC: BFHLAB 15:45 | PROVIDERS: PCP Family Medicine; Visit Provider Family Medicine | DX: E55.9 Vitamin D deficiency, unspecified (principal) | CPT/HCPCS: 36415; 82306 ==

== ENCOUNTER → 2023-12-06 | Outpatient (CLI) | payer MEDICAID, SELFPAY ==
[2023-12-06 17:25] LABS: Absolute Lymphocyte Count 3.48 X10^3/uL (0.83-4.51); Absolute Neutrophil Count 6.7 X10^3/uL (2.0-7.7); Basophil# 0.04 X10^3/uL; Basophil% 0.3 % (0-1); Eosinophil# 0.13 X10^3/uL; Eosinophils% 1.1 % (0-5); Hematocrit 33.9 % (37-47); Hemoglobin 10.5 g/dL (12.0-15.0); Lymphocyte # 3.48 X10^3/ul (0.83-4.51); Lymphocyte % 30.2 % (19-41); Mean Corpuscular Hgb 30.3 pg (27.0-32.0); Mean Corpuscular Volume 97.7 fL (81-99); Mean Platelet Vol. 9.9 fl (6.2-12.0); Monocyte# 1.11 X10^3/uL; Monocyte% 9.6 % (0-10); NRBC Flagged by Analyzer 0 % (0-5); Neutrophil # 6.71 X10^3/uL (2.7-7.7); Neutrophil % 58.4 % (47-70); Platelet Count 234 K/mm3 (150-450); RBC Distribution Width CV 14.4 % (11.6-14.6); RBC Distribution Width SD 51.8 fl (35.1-43.9); Red Blood Count 3.47 M/mm3 (4.2-5.4); White Blood Count 11.5 K/mm3 (4.4-11.0)
== END | disposition home or self-care (01) ==
LOC: MTLAB 15:11
PROVIDERS: PCP Family Medicine; Referring Provider Orthopaedic Surgery Sports Medicine; Visit Provider Orthopaedic Surgery Sports Medicine
DX: S82.831A Other fracture of upper and lower end of right fibula, initial encounter for closed fracture (principal); B99.9 Unspecified infectious disease
CPT/HCPCS: 36415; 85025; 86140

== ENCOUNTER → 2023-12-10 | Outpatient (CLI) | payer SELFPAY | END | disposition home or self-care (01) | LOC: LABSPEC 15:24 | PROVIDERS: PCP Family Medicine; Referring Provider Orthopaedic Surgery Sports Medicine; Visit Provider Orthopaedic Surgery Sports Medicine | DX: T14.8XXA Other injury of unspecified body region, initial encounter (principal); B99.9 Unspecified infectious disease | CPT/HCPCS: 87640 ==

== ENCOUNTER → 2024-08-20 | Outpatient (CLI) | payer SELFPAY ==
[2024-08-20 17:42] LABS: OXY Internal Control LINE = VALID (VALID); Oxycodone Drug Screen Positive (<100 ng/mL)
[2024-08-20 17:49] LABS: Amphetamine Urine VISTA NEGATIVE (<1000 ng/mL); Barbiturate Urine VISTA NEGATIVE (< 200 ng/mL); Benzodiazepine Urine VISTA NEGATIVE (< 200 ng/mL); Cocaine Urine VISTA NEGATIVE (< 300 ng/mL); Ecstacy Urine VISTA NEGATIVE (< 500 ng/mL); Methadone Urine VISTA NEGATIVE (< 300 ng/mL); PCP Urine VISTA NEGATIVE (< 25 ng/mL); THC Urine VISTA NEGATIVE (< 50 ng/mL); Vista UDS pH Range 5
== END | disposition home or self-care (01) ==
LOC: BFHLAB 16:40
PROVIDERS: PCP Family Medicine; Visit Provider Family Medicine
DX: Z79.899 Other long term (current) drug therapy (principal)
CPT/HCPCS: 80307; 80365; G0480

== ENCOUNTER → 2025-02-18 | Outpatient (CLI) | payer SELFPAY ==
[2025-02-18 17:59] LABS: Amphetamine Urine NEGATIVE (<1000 ng/mL); Barbiturate Urine NEGATIVE (< 200 ng/mL); Benzodiazepine Urine NEGATIVE (< 200 ng/mL); Buprenorphine Urine NEGATIVE (< 200 ng/mL); Cocaine Urine NEGATIVE (< 300 ng/mL); Fentanyl, Urine NEGATIVE; Methadone Urine NEGATIVE (< 300 ng/mL); Opiates Urine NEGATIVE (< 300 ng/mL); Oxycodone, Urine PRESUMPTIVE POSITIVE (< 100 ng/mL); PCP Urine NEGATIVE (< 25 ng/mL); THC Urine NEGATIVE (< 50 ng/mL)
== END | disposition home or self-care (01) ==
LOC: LABSPEC 11:49
PROVIDERS: PCP Family Medicine; Visit Provider Family Medicine
DX: Z79.899 Other long term (current) drug therapy (principal)
CPT/HCPCS: 80307

== ENCOUNTER → 2025-03-18 | Outpatient (CLI) | payer MEDICAID, SELFPAY ==
[2025-03-18 15:30] LABS: Hematocrit 37.0 % (37-47); Hemoglobin 11.5 g/dL (12.0-15.0); Immature Granulocytes Count 0.020 X10^3/uL (0.0-0.0); Mean Corp Hgb Conc 31.1 g/dL (32-36); Mean Corpuscular Volume 98.7 fL (81-99); Mean Platelet Vol. 10.6 fl (6.2-12.0); NRBC Flagged by Analyzer 0 % (0-5); Platelet Count 214 K/mm3 (150-450); RBC Distribution Width CV 14.6 % (11.6-14.6); RBC Distribution Width SD 53.8 fl (35.1-43.9); Red Blood Count 3.75 M/mm3 (4.2-5.4); White Blood Count 7.4 K/mm3 (4.4-11.0)
[2025-03-18 16:16] LABS: AST(SGOT) 22 U/L (<=31); Alanine Aminotransfer ALT/SGPT 16 U/L (<=34); Albumin, Serum 4.0 g/dL (3.5-5.0); Alkaline Phosphatase 84 U/L (35-104); Anion Gap 9 (5-15); BUN 13 mg/dL (4-19); BUN/Creat Ratio 14.1 RATIO (10-20); Calcium,Total 9.1 mg/dL (7.6-11.0); Carbon Dioxide 23.0 mmol/L (21.0-32.0); Chloride 107 mmol/L (98-108); Globulin 2.4 g/dL (2.2-4.2); Glucose 94 mg/dL (70-99); Potassium 5.1 mmol/L (3.3-5.1)
== END | disposition home or self-care (01) ==
LOC: BFHLAB 11:32
PROVIDERS: PCP Family Medicine; Visit Provider Family Medicine
DX: R60.9 Edema, unspecified (principal); R53.83 Other fatigue
CPT/HCPCS: 36415; 80053; 84439; 84443; 85025

== ENCOUNTER → 2025-07-20 | Outpatient (CLI) | payer MEDICAID, SELFPAY ==
[2025-07-20 18:01] LABS: Hematocrit 37.3 % (37-47); Hemoglobin 11.9 g/dL (12.0-15.0); Immature Granulocytes Count 0.020 X10^3/uL (0.0-0.0); Mean Corp Hgb Conc 31.9 g/dL (32-36); Mean Corpuscular Volume 96.9 fL (81-99); Mean Platelet Vol. 11.0 fl (6.2-12.0); NRBC Flagged by Analyzer 0 % (0-5); Platelet Count 219 K/mm3 (150-450); RBC Distribution Width CV 13.9 % (11.6-14.6); RBC Distribution Width SD 49.6 fl (35.1-43.9); Red Blood Count 3.85 M/mm3 (4.2-5.4); White Blood Count 7.2 K/mm3 (4.4-11.0)
[2025-07-20 18:44] LABS: Cholesterol 125 mg/dL (<=200); Ferritin 22 ng/mL (22-378); Low Density Lipoprotein Calc. 58 mg/dL; Triglycerides 182 mg/dL; Very Low Density Lipoprotein 36 mg/dL (5-40); Vitamin B12 357 pg/mL (180-914); cholesterol:hdl ratio screen 3.37
[2025-07-20 19:20] LABS: Iron 79 ug/dL (50-170)
== END | disposition home or self-care (01) ==
LOC: BFHLAB 16:10
PROVIDERS: PCP Family Medicine; Visit Provider Family Medicine
DX: D64.9 Anemia, unspecified (principal); I10 Essential (primary) hypertension
CPT/HCPCS: 36415; 80061; 82607; 82728; 83540; 85025